=== PATIENT | female | born 1990 | race Caucasian/White ===

== ENCOUNTER → 2021-01-13 14:06 | Outpatient (CLI) | payer OTHER, MEDICAID, SELFPAY ==
[2021-01-13 14:39] LABS: COVID19 -Nasal RAPID Negative (Negative)
== END ==
PROVIDERS: Referring Provider Nurse Practitioner; Visit Provider Nurse Practitioner
DX: Z20.822 Contact with and (suspected) exposure to COVID-19 (principal)
CPT/HCPCS: 81002; 81025; 87635

== ENCOUNTER 2021-01-24 13:20 | Emergency (ER) | payer OTHER, MEDICAID, SELFPAY ==
[2021-01-24 14:02] VITALS: BP 158/73; PULSE 93; RESP 20; TEMP 37; O2SAT 98; BMI 39.1
--- NOTE | 2021-01-24 16:36 | ED_ITS ---
HPI - Female Genitourinary <Vick Delaney PA-C - Last Filed: 02/01/21 13:36> General Chief complaint: Vaginal Bleeding Stated complaint: Bleeding, Just Found Out Preg Time Seen by Provider: 01/24/21 14:45 Source: patient Mode of arrival: Ambulatory Related Data Home Medications Medication Instructions Recorded Confirmed Effexor 1 tab PO DAILY 01/24/21 02/04/21 buspirone 1 tab PO DAILY 01/24/21 02/04/21 oxycodone-acetaminophen 5 mg-325 0 tab PO Q4HP PRN 02/04/21 02/04/21 mg tablet (Percocet) Previous Rx's Medication Instructions Recorded ondansetron 4 mg disintegrating 4 mg PO Q8H PRN #10 tab 01/31/21 tablet Allergies Allergy/AdvReac Type Severity Reaction Status Date / Time methocarbamol [METHOCARBAMOL] Allergy Unknown SHARP Verified 02/03/21 16:23 DECREASE IN O2 SATS Penicillins Allergy Verified 02/03/21 16:23 Patient History <Vick Delaney PA-C - Last Filed: 02/01/21 13:36> Medical History Bartholin's gland abscess Methamphetamine abuse Miscarriage Opioid abuse Vaginal bleeding Surgical History History of lithotripsy Status post breast reduction alcohol intake frequency: 3 or more drinks per day Substance Use Type: marijuana, methamphetamine and other Exam <Vick Delaney PA-C - Last Filed: 02/01/21 13:36> Initial Vital Signs Initial Vital Signs: Vital Signs Temperature 98.6 F 01/24/21 14:02 Pulse Rate 93 H 01/24/21 14:02 Respiratory Rate 20 01/24/21 14:02 Blood Pressure 158/73 H 01/24/21 14:02 Pulse Oximetry 98 01/24/21 14:02 <Zach Rojo DO - Last Filed: 02/04/21 08:35> Initial Vital Signs Initial Vital Signs: Vital Signs Temperature 98.6 F 01/24/21 14:02 Pulse Rate 93 H 01/24/21 14:02 Respiratory Rate 20 01/24/21 14:02 Blood Pressure 158/73 H 01/24/21 14:02 Pulse Oximetry 98 01/24/21 14:02 Course <Vick Delaney PA-C - Last Filed: 02/01/21 13:36> Vital Signs Vital signs: Vital Signs - 8 hr 01/24/21 14:02 Temperature 98.6 F Pulse Rate 93 H Respiratory Rate 20 Blood Pressure 158/73 H Pulse Oximetry 98 <Zach Rojo DO - Last Filed: 02/04/21 08:35> Vital Signs Vital signs: Vital Signs - 8 hr 01/24/21 14:02 Temperature 98.6 F Pulse Rate 93 H Respiratory Rate 20 Blood Pressure 158/73 H Pulse Oximetry 98 MDM - Female Genitourinary <Vick Delaney PA-C - Last Filed: 02/01/21 13:36> Lab Data Labs: Urine Dip Bedside Urine Glucose Negative Bedside Urine Bilirubin + 1 Bedside Urine Ketone +/- 5 Urine Specific [place] 1.030 Bedside Urine Occult Blood +++ Bedside Urine pH 5.5 Bedside Urine Protein ++ 100 Bedside Urine Urobilinogen - Negative Bedside Urine Nitrite - Negative Bedside Urine Leukocytes + 70 Esterase <Zach Rojo DO - Last Filed: 02/04/21 08:35> Lab Data Labs: Urine Dip Bedside Urine Glucose Negative Bedside Urine Bilirubin + 1 Bedside Urine Ketone +/- 5 Urine Specific [place] 1.030 Bedside Urine Occult Blood +++ Bedside Urine pH 5.5 Bedside Urine Protein ++ 100 Bedside Urine Urobilinogen - Negative Bedside Urine Nitrite - Negative Bedside Urine Leukocytes + 70 Esterase Discharge Plan Departure Patient Disposition: Left Against Medical Advice Clinical Impression: Vaginal bleeding Activity Restrictions/Additional Instructions: You were seen in the ED today for vaginal bleeding. You declined the blood tests that are essential to your care. You are leaving against medical advice. Please return to the ED if you continue to have increased bleeding, you feel lightheaded, you faint, you have abdominal cramping, fever, chills. Prescriptions: No Action Effexor 75 mg tablet 1 tab PO DAILY RF: 0 buspirone 125 mg tablet 1 tab PO DAILY RF: 0 ondansetron 4 mg tablet,disintegrating 4 mg PO Q8H PRN (Reason: nausea and vomiting) Qty: 10 RF: 0 oxycodone-acetaminophen [Percocet] 5 MG/325 MG tablet 0 tab PO Q4HP PRN (Reason: Pain, Moderate) RF: 0 Referrals: Miscellaneous,Doctor, MD [Primary Care Provider] - Stand Alone Forms: Against Medical Advice
== END 2021-01-24 15:03 | disposition left against medical advice (07) ==
PROVIDERS: Emergency Provider Student in an Organized Health Care Education/Training Program
DX: O20.9 Hemorrhage in early pregnancy, unspecified (principal)
CPT/HCPCS: 81003; 99282

== ENCOUNTER 2021-01-30 21:49 | Emergency (ER) | payer OTHER, MEDICAID, SELFPAY ==
[2021-01-30 21:52] VITALS: BP 136/66; PULSE 92; RESP 18; TEMP 36.8; O2SAT 99
[2021-01-30 22:12] LABS: Add Manual Diff / Slide Review NO; Basophils Absolute Auto 0 /uL (0-100); Basophils Percent Auto 0.6 % (0-2); Eosinophils Absolute Auto 500 /uL (0-450); Eosinophils Percent Auto 5.6 % (2-4); Hematocrit 39.3 % (36-46); Hemoglobin 12.8 g/dL (12.0-16.0); Lymphocytes Absolute Auto 3300 /uL (1100-4500); Lymphocytes Percent Auto 38.3 % (25-40); Mean Corpuscular HGB Conc 32.7 % (30-36); Mean Corpuscular Hemoglobin 26.8 PG (26-34); Monocytes Absolute Auto 700 /uL (0-900); Monocytes Percent Auto 8.5 % (3-14); Neutrophils Absolute Auto 4000 /uL (1500-7000); Platelet Count 375 X10^3/uL (150-400); Red Blood Cell Count 4.79 X10^6/uL (4.0-5.2); Red Cell Distribution Width 14.5 % (11.6-14.8); White Blood Cell Count 8.5 X10^3/uL (4.5-11.0)
[2021-01-30 22:19] LABS: Alanine Aminotransferase 17 IU/L (<35); Albumin 4.2 g/dL (3.5-5.0); Albumin Globulin Ratio 1.3 (1.0-2.8); Alkaline Phosphatase 55 U/L (38-126); Aspartate Aminotransferase 19 IU/L (14-36); BUN Creatinine Ratio 18.5 (6-22); Bilirubin Total 0.5 mg/dL (0.2-1.3); Blood Urea Nitrogen 12 mg/dL (7-17); Calcium 9.9 mg/dL (8.4-10.2); Carbon Dioxide 36 mmol/L (22-32); Chloride 100 mmol/L (98-107); Estimated Glomerular Filt Rate > 60.0 mL/min (>60); Globulin 3.2 g/dL (1.7-4.1); Glucose 102 mg/dL (70-100); HEMOLYSIS < 15 (0-50); Lipase 27 U/L (23-300); Sodium 140 mmol/L (137-145); Total Protein 7.4 g/dL (6.3-8.2)
[2021-01-30] MEDS: ONDANSETRON 4 MG/2 ML INJ IV (22:50)
--- NOTE | 2021-01-31 00:35 | ED.GENADULT ---
HPI - General Adult General Chief complaint: Abdominal Pain Stated complaint: Vomiting,stomach ache, miscarrage? SOB Time Seen by Provider: 01/31/21 00:11 Source: patient Mode of arrival: Ambulatory History of Present Illness HPI narrative: Woman with a history of addiction disorder including alcohol, marijuana and methamphetamine presents with vaginal bleeding and vomiting. She was seen January 13 with concerns for STI testing and incidentally found to be . Was seen again on the with vaginal bleeding. States that she has continued to bleed and over the last 3 days started throwing up. She describes no pelvic pain or cramping but does complain of midepigastric pain particularly associated with vomiting. She describes no fevers, headaches, myalgias. She does describe some vaginal discharge with the spotting she has had over the last at least 2 weeks but does not describe any significant odor. Related Data Home Medications Medication Instructions Recorded Confirmed Effexor 01/24/21 buspirone 01/24/21 Previous Rx's Medication Instructions Recorded oxycodone-acetaminophen 5 mg-325 0 tab PO Q4HP PRN #30 tab 01/25/17 mg tablet (Percocet) Allergies Allergy/AdvReac Type Severity Reaction Status Date / Time methocarbamol [METHOCARBAMOL] Allergy Unknown SHARP Verified 01/24/21 14:04 DECREASE IN O2 SATS Penicillins Allergy Verified 01/30/21 21:55 Review of Systems Review of Systems Narrative: Remainder of complete review of systems is otherwise unremarkable except for that included in the HPI. Patient History Surgical History History of lithotripsy Status post breast reduction Social History Smoking Status: Current every day smoker Smoking Status: Current every day smoker alcohol intake frequency: 3 or more drinks per day Substance Use Type: marijuana, methamphetamine and other Exam Narrative Exam Narrative: General: disheveled, anxious, vomiting but in no acute distress Respiratory: Able to speak in full sentences, no obvious respiratory distress Skin: No obvious rashes, warm and dry Neurologic: Grossly intact no obvious asymmetries or abnormalities Psych: appropriate insight and affect, cooperative Bedside ultrasound: There appears to be debris in the uterus but no pole or heartbeat is appreciated. She describes no suprapubic or pelvic tenderness during exam. Initial Vital Signs Initial Vital Signs: Vital Signs Temperature 98.2 F 01/30/21 21:52 Pulse Rate 92 H 01/30/21 21:52 Respiratory Rate 18 01/30/21 21:52 Blood Pressure 136/66 01/30/21 21:52 Pulse Oximetry 99 01/30/21 21:52 Course Orders Ordered: ED Orders 01/30/21 22:04 Complete Blood Count AUTO DIFF Stat Comprehensive Metabolic Panel Stat Lipase Stat EKG-12 Lead Stat 01/31/21 00:44 HCG Quantitative /Beta subunit Stat 01/31/21 00:55 Urinalysis and Microscopic Stat Discontinued Medications Sodium Chloride (Normal Saline 0.9%) 1,000 mls @ 1,000 mls/hr IV BOLUS ONE Stop: 01/31/21 01:42 Last Admin: 01/31/21 00:57 Dose: 1,000 mls/hr Documented by: SAMINA Metoclopramide HCl (Metoclopramide 10 Mg/2 Ml Inj) 10 mg IV NOW ONE Stop: 01/31/21 00:44 Last Admin: 01/31/21 00:57 Dose: 10 mg Documented by: SAMINA Ondansetron HCl (Ondansetron 4 Mg/2 Ml Inj) 4 mg IV NOW ONE Stop: 01/30/21 22:27 Last Admin: 01/30/21 22:50 Dose: 4 mg Documented by: SAMINA Vital Signs Vital signs: Vital Signs - 8 hr 01/30/21 21:52 01/31/21 01:02 Temperature 98.2 F Pulse Rate 92 H 68 Respiratory Rate 18 Blood Pressure 136/66 121/70 Pulse Oximetry 99 98 Medical Decision Making Lab Data Result diagrams: 01/30/21 22:04 01/30/21 22:04 Labs: Lab Results 01/30/21 01/30/21 01/30/21 Range/Units 22:04 22:04 22:05 WBC 8.5 (4.5-11.0) X10^3/uL RBC 4.79 (4.0-5.2) X10^6/uL Hgb 12.8 (12.0-16.0) g/dL Hct 39.3 (36-46) % MCV 82.0 (80-100) fL MCH 26.8 (26-34) PG MCHC 32.7 (30-36) % RDW 14.5 (11.6-14.8) % Plt Count 375 (150-400) X10^3/uL Neut % (Auto) 47.0 L (50-75) % Lymph % (Auto) 38.3 (25-40) % [place] % (Auto) 8.5 (3-14) % Eos % (Auto) 5.6 H (2-4) % Baso % (Auto) 0.6 (0-2) % Neut # (Auto) 4000 (7021-7778) /uL Lymph # (Auto) 3300 (2334-5389) /uL [place] # (Auto) 700 (0-900) /uL Eos # (Auto) 500 H (0-450) /uL Baso # (Auto) 0 (0-100) /uL Sodium 140 (137-145) mmol/L Potassium 4.0 (3.4-5.1) mmol/L Chloride 100 (98-107) mmol/L Carbon Dioxide 36 H (22-32) mmol/L BUN 12 (7-17) mg/dL Creatinine 0.65 (0.52-1.04) mg/dL Estimated GFR > 60.0 (>60) mL/min BUN/Creatinine Ratio 18.5 (6-22) Glucose 102 H (70-100) mg/dL Calcium 9.9 (8.4-10.2) mg/dL Total Bilirubin 0.5 (0.2-1.3) mg/dL AST 19 (14-36) IU/L ALT 17 (<35) IU/L Alkaline Phosphatase 55 (38-126) U/L Total Protein 7.4 (6.3-8.2) g/dL Albumin 4.2 (3.5-5.0) g/dL Globulin 3.2 (1.7-4.1) g/dL Albumin/Globulin Ratio 1.3 (1.0-2.8) Lipase 27 (23-300) U/L HCG, Quant 80.1 mIU/mL Urine Color Urine Appearance Urine pH (4.5-8.0) Ur Specific [place] (1.000-1.035) Urine Protein (Negative) Urine Glucose (UA) (Negative) g/dL Urine Ketones (NEGATIVE) Urine Occult Blood (Negative) Urine Nitrate (Negative) Urine Bilirubin (NEGATIVE) Urine Urobilinogen (0.2) E.U./dL Ur Leukocyte Esterase (NEGATIVE) Urine RBC (0-5/HPF) Urine WBC (0-5/HPF) Ur Squamous Epith Cells (0-5/HPF) Amorphous Sediment Urine Bacteria (None) Urine Mucus (Negative) Ur Culture Indicated? 01/31/21 Range/Units 00:55 WBC (4.5-11.0) X10^3/uL RBC (4.0-5.2) X10^6/uL Hgb (12.0-16.0) g/dL Hct (36-46) % MCV (80-100) fL MCH (26-34) PG MCHC (30-36) % RDW (11.6-14.8) % Plt Count (150-400) X10^3/uL Neut % (Auto) (50-75) % Lymph % (Auto) (25-40) % [place] % (Auto) (3-14) % Eos % (Auto) (2-4) % Baso % (Auto) (0-2) % Neut # (Auto) (8885-3979) /uL Lymph # (Auto) (0960-9468) /uL [place] # (Auto) (0-900) /uL Eos # (Auto) (0-450) /uL Baso # (Auto) (0-100) /uL Sodium (137-145) mmol/L Potassium (3.4-5.1) mmol/L Chloride (98-107) mmol/L Carbon Dioxide (22-32) mmol/L BUN (7-17) mg/dL Creatinine (0.52-1.04) mg/dL Estimated GFR (>60) mL/min BUN/Creatinine Ratio (6-22) Glucose (70-100) mg/dL Calcium (8.4-10.2) mg/dL Total Bilirubin (0.2-1.3) mg/dL AST (14-36) IU/L ALT (<35) IU/L Alkaline Phosphatase (38-126) U/L Total Protein (6.3-8.2) g/dL Albumin (3.5-5.0) g/dL Globulin (1.7-4.1) g/dL Albumin/Globulin Ratio (1.0-2.8) Lipase (23-300) U/L HCG, Quant mIU/mL Urine Color Dark yellow Urine Appearance Slightly cloudy Urine pH 8.5 H (4.5-8.0) Ur Specific [place] 1.010 (1.000-1.035) Urine Protein 2+ H (Negative) Urine Glucose (UA) Trace H (Negative) g/dL Urine Ketones Negative (NEGATIVE) Urine Occult Blood 3+ H (Negative) Urine Nitrate Negative (Negative) Urine Bilirubin Negative (NEGATIVE) Urine Urobilinogen 0.2 (0.2) E.U./dL Ur Leukocyte Esterase Negative (NEGATIVE) Urine RBC 0-1/hpf (0-5/HPF) Urine WBC 0-1/hpf (0-5/HPF) Ur Squamous Epith Cells 5-10 /hpf H (0-5/HPF) Amorphous Sediment 2+ Urine Bacteria Moderate (10-30) H (None) Urine Mucus 2+ H (Negative) Ur Culture Indicated? Cult not indicated MDM Narrative Medical decision making narrative: 30-year-old woman with recently diagnosed bleeding for the last 2 weeks. Bedside ultrasound does not show of viable intrauterine fetus and beta hCG is down to 80. No signs of overall infection and no good explanation for the vomiting she has been having for the last couple of days. No evidence of acute renal failure or electrolyte abnormalities. She has responded nicely to fluids and Zofran. Will discharge her home with a prescription for Zofran. We also discussed the need for control to avoid another unwanted . At this time, with absence of pelvic pain I do not suspect ectopic , pelvic inflammatory disease. Her urine looks contaminated and without symptoms of a UTI will wait for culture to return prior to any treatment. She is safe for home discharge Discharge Plan Departure Patient Disposition: Home Clinical Impression: Miscarriage, Dehydration Nausea & vomiting Qualifiers: Vomiting type: unspecified Vomiting Intractability: non-intractable Qualified Code(s): R11.2 - Nausea with vomiting, unspecified Instructions: DI for Miscarriage, DI for Vomiting -- Adult Activity Restrictions/Additional Instructions: Thank you for coming in today You are having a miscarriage. Please do expect continue bleeding for the next couple of days. I would recommend following up with your primary care provider or [facility] to discuss [facility] options so that you do not have to worry about another unplanned . I have given you a prescription for Zofran to help with the nausea if it continues. If you do continue to have cramps related to your miscarriage, using 400 mg of ibuprofen (2 [id number] pills) and 1 Tylenol every 6 hours can be very helpful in controlling pain. I wish you the best Prescriptions: No Action oxycodone-acetaminophen [Percocet] 5 MG/325 MG tablet 0 tab PO Q4HP PRNQty: 30 RF: 0 Effexor RF: 0 buspirone RF: 0 Referrals: Miscellaneous,Doctor, MD [Primary Care Provider] -
[2021-01-31] MEDS: METOCLOPRAMIDE 10 MG/2 ML INJ IV (00:57)
[2021-01-31] MEDS: SODIUM CHLORIDE 0.9% 1,000 ML 1000 ML IV (00:57)
[2021-01-31 01:02] VITALS: BP 121/70; PULSE 68; O2SAT 98
[2021-01-31 01:11] LABS: Bilirubin Urine UA NEGATIVE (NEGATIVE); Glucose Urine UA TRACE g/dL (Negative); Ketones Urine UA NEGATIVE (NEGATIVE); Leukocyte Esterase Urine UA NEGATIVE (NEGATIVE); Nitrite Urine UA NEGATIVE (Negative); Occult Blood Urine UA 3+ (Negative); Protein Urine UA 2+ (Negative); Urobilinogen Urine UA 0.2 E.U./dL (0.2)
[2021-01-31 01:12] LABS: Appearance Urine UA Slightly Cloudy; Color Urine UA Dark Yellow; RBC Urine 0-1/HPF (0-5/HPF); Squamous Epithelial Cell Urine 5-10 /HPF (0-5/HPF); WBC Urine 0-1/HPF (0-5/HPF); pH Urine UA 8.5 (4.5-8.0)
[2021-01-31 01:13] LABS: Amorphous Sediment Urine 2+; Bacteria Urine Moderate (10-30); Culture Indicated Urine Cult Not Indicated; Mucus Urine 2+ (Negative)
[2021-01-31 01:17] LABS: HCG Quantitative /Beta subunit 80.1 mIU/mL
[2021-01-31] MEDS: KETOROLAC 30 MG/ML VIAL 15 MG IV (02:08)
== END 2021-01-31 02:22 | disposition home or self-care (01) ==
PROVIDERS: Emergency Provider Emergency Medicine
DX: O03.9 Complete or unspecified spontaneous abortion without complication (principal); E86.0 Dehydration; R11.2 Nausea with vomiting, unspecified
CPT/HCPCS: 36415; 80053; 81001; 83690; 84702; 85025; 96361; 96374; 96375; 99284; J1885; J2405; J2765

== ENCOUNTER 2021-02-03 15:35 | Observation (INO) | payer OTHER, MEDICAID, SELFPAY ==
[2021-02-03] VITALS (12 sets, daily range): BP systolic 106–133; BP diastolic 60–82; PULSE 72–99; RESP 11–22; TEMP 36.6–37.1; O2SAT 87–100; BMI 37.5
--- NOTE | 2021-02-03 15:36 | DI.CT.S_ITS ---
PROCEDURE: CT STROKE INDICATIONS: code stroke TECHNIQUE: Noncontrast 4.5 mm thick angled axial sections acquired from the foramen magnum to the vertex, with coronal reformats. For radiation dose reduction, the following was used: automated exposure control, adjustment of mA and/or kV according to patient size. COMPARISON: None. FINDINGS: Image quality: Excellent. CSF spaces: Basal cisterns are patent. No extra-axial fluid collections. The ventricles are symmetric in size and shape. Brain: No intracranial bleeds or masses. There is cerebral volume loss for age, with resultant ventricular and sulcal prominence. There are periventricular and deep white matter chronic small vessel ischemic changes. There is intracranial internal carotid artery atherosclerosis. Skull and face: Calvarium and visualized facial bones appear intact, without suspicious lesions. Sinuses: Visualized sinuses and mastoids are clear. IMPRESSION: No acute intracranial disease process. Findings telephoned to Dr. Montanez on February 03, 2021 at 4:03 p.m PDST. This study fulfills neurological imaging criteria for inclusion or exclusion of acute stroke therapies based on available published neurological guidelines. Dictated by: Marsha Alcazar MD, PhD on 02/03/2021 at 15:01 Approved by: Marsha Alcazar MD, PhD on 02/03/2021 at 15:05
--- NOTE | 2021-02-03 15:38 | DI.CT.S_ITS ---
PROCEDURE: CT ANGIO HEAD AND NECK INDICATIONS: code stroke TECHNIQUE: After the administration of intravenous contrast, 1 mm thick sections acquired from the aortic arch through the [place] of [place]. Post-contrast 4.5 mm thick sections then re-acquired from the foramen magnum to the vertex. 3-dimensional [id number] (MIP) and/or volume rendering reformats were acquired of the central intracranial vasculature and neck separately. COMPARISON: [facility], CT, CT STROKE, 02/03/2021, 15:50. FINDINGS: Image quality: Degraded by venous contrast opacification related to prior intravenous contrast ejection with early vein failure with injection site. Contrast injection was repeated with different intravenous injection site. BRAIN: CSF spaces: Ventricles are normal in size and shape. Basal cisterns are patent. No extra-axial fluid collections. Brain: No midline shift. No intracranial bleeds or masses. Siegel-white matter interface appears intact. Skull and face: Calvarium and facial bones appear intact, without suspicious lesions. Orbits appear normal. Sinuses: Sinuses and mastoids are clear. HEAD CT ANGIOGRAPHY: Anterior circulation: Intracranial internal carotid arteries are normal in size and flow. The flow within the paired anterior cerebral arteries is normal and symmetric. The flow within the middle cerebral arteries is normal and symmetric. The anterior communicating artery is seen. No aneurysms are seen. Posterior circulation: Visualized portions of the vertebral arteries demonstrate normal caliber, and join to form a normal appearing basilar artery. Flow within the posterior cerebral arteries is normal and symmetric. No aneurysms are seen. Dural sinuses demonstrate normal postcontrast enhancement. NECK CT ANGIOGRAPHY: Carotid system: The great vessels demonstrate a conventional anatomy as they arise from the aortic arch. The origins of the common carotid arteries appear patent. The common carotid arteries demonstrate normal caliber and courses. The bifurcation regions are both widely patent. The internal carotid arteries demonstrate normal calibers and courses. Posterior circulation: The origins of the vertebral arteries both appear widely patent. The more superior extracranial portions of both vertebral arteries also demonstrate normal courses and calibers. They join to form a normal appearing basilar artery. Soft tissues: Visualized neck soft tissues demonstrate no suspicious abnormalities. Bones: No suspicious bony lesions. Visualized cervical spine appears normally aligned. IMPRESSION: 1. No acute intracranial disease process. 2. No large vessel occlusion, hemodynamically significant vascular stenosis, vascular dissection or aneurysm within limitations of the study. Any quantitative measurements of stenosis were performed using NASCET criteria. Dictated by: Marsha Alcazar MD, PhD on 02/03/2021 at 15:20 Approved by: Marsha Alcazar MD, PhD on 02/03/2021 at 15:34
[2021-02-03 16:16] LABS: Add Manual Diff / Slide Review NO; Basophils Absolute Auto 0 /uL (0-100); Basophils Percent Auto 0.6 % (0-2); Eosinophils Absolute Auto 300 /uL (0-450); Eosinophils Percent Auto 3.2 % (2-4); Hematocrit 42.8 % (36-46); Hemoglobin 13.9 g/dL (12.0-16.0); Lymphocytes Absolute Auto 2600 /uL (1100-4500); Lymphocytes Percent Auto 33.4 % (25-40); Mean Corpuscular HGB Conc 32.5 % (30-36); Mean Corpuscular Hemoglobin 27.3 PG (26-34); Mean Corpuscular Volume 84.1 fL (80-100); Monocytes Absolute Auto 600 /uL (0-900); Monocytes Percent Auto 7.4 % (3-14); Neutrophils Absolute Auto 4300 /uL (1500-7000); Neutrophils Percent Auto 55.4 % (50-75); Platelet Count 302 X10^3/uL (150-400); Red Blood Cell Count 5.09 X10^6/uL (4.0-5.2); Red Cell Distribution Width 14.9 % (11.6-14.8); White Blood Cell Count 7.8 X10^3/uL (4.5-11.0)
[2021-02-03 16:18] LABS: Creatine Kinase 50 U/L (30-135); Ethanol (ETOH) < 10 mg/dL; Lipase 28 U/L (23-300); Salicylate < 1.0 mg/dL (<20)
[2021-02-03 16:19] LABS: Acetaminophen < 10 ug/mL (10-30); Alanine Aminotransferase 16 IU/L (<35); Albumin 4.3 g/dL (3.5-5.0); Albumin Globulin Ratio 1.5 (1.0-2.8); Alkaline Phosphatase 60 U/L (38-126); Aspartate Aminotransferase 22 IU/L (14-36); BUN Creatinine Ratio 20.3 (6-22); Bilirubin Total 0.4 mg/dL (0.2-1.3); Blood Urea Nitrogen 16 mg/dL (7-17); Calcium 9.7 mg/dL (8.4-10.2); Carbon Dioxide 25 mmol/L (22-32); Chloride 103 mmol/L (98-107); Estimated Glomerular Filt Rate > 60.0 mL/min (>60); Globulin 2.9 g/dL (1.7-4.1); Glucose 107 mg/dL (70-100); HEMOLYSIS < 15 (0-50); Potassium 3.9 mmol/L (3.4-5.1); Sodium 138 mmol/L (137-145); Total Protein 7.2 g/dL (6.3-8.2)
[2021-02-03 16:29] LABS: INR 1.1 (0.9-1.3); Prothrombin Time 12.4 SECONDS (10.1-12.7)
[2021-02-03 16:29] LABS: Troponin I < 0.012 ng/mL (0.01-0.034)
[2021-02-03] MEDS: SODIUM CHLORIDE 0.9% 1,000 ML 125 ML IV (16:30)
[2021-02-03 16:31] LABS: PTT Partial Thromboplastin Tim 35 SECONDS (26.4-36.2)
[2021-02-03 16:34] LABS: Lactate (Lactic Acid) 1.4 mmol/L (0.7-2.1)
--- NOTE | 2021-02-03 16:34 | ED_ITS ---
HPI - General Adult <Francisco J Montanez, DO - Last Filed: 02/04/21 07:20> General Chief complaint: Neuro Symptoms/Deficit Stated complaint: stroke Time Seen by Provider: 02/03/21 15:36 Source: patient and EMS Mode of arrival: EMS Limitations: no limitations History of Present Illness HPI narrative: Patient is a 30-year-old female who arrives by EMS as a code stroke for evaluation of left-sided weakness. Is reported that the symptom onset was at 14 30 this afternoon. She arrived approximately 1 hour afterwards. Is reported that she did use methamphetamine just prior to the onset of the s ymptoms. This was per EMS who got this information from the individual's that she was with at the time. Reports of left leg weakness and left-sided facial droop. Upon arrival patient was initially seen by nursing staff. Nursing staff stated that she did have facial droop and problems speaking and also left arm and left leg weakness. She went to the CT scanner soon after arrival. Upon returning to the room I performed my evaluation. Patient states she does have a headache. She cannot describe it much more than that she has pain all over her head. States she has had the headache all day today. She has had headaches in the past but nothing that has been this bad. She denies having left-sided weakness. She also states that she fell earlier today. She reports no injuries from the fall. She denies alcohol. She denies neck pain. No problems swallowing. No chest pain. No shortness of breath. No nausea vomiting. No urinary symptoms. She denies any musculoskeletal complaints. Related Data Home Medications Medication Instructions Recorded Confirmed Effexor 1 tab PO DAILY 01/24/21 02/04/21 buspirone 1 tab PO DAILY 01/24/21 02/04/21 oxycodone-acetaminophen 5 mg-325 0 tab PO Q4HP PRN 02/04/21 02/04/21 mg tablet (Percocet) Previous Rx's Medication Instructions Recorded ondansetron 4 mg disintegrating 4 mg PO Q8H PRN #10 tab 01/31/21 tablet Allergies Allergy/AdvReac Type Severity Reaction Status Date / Time methocarbamol [METHOCARBAMOL] Allergy Unknown SHARP Verified 02/03/21 16:23 DECREASE IN O2 SATS Penicillins Allergy Verified 02/03/21 16:23 <Belle Tesfaye, - Last Filed: 02/04/21 03:21> History of Present Illness HPI narrative: Patient is a 30-year-old female who arrives by EMS as a code stroke for evaluation of left-sided weakness. Is reported that the symptom onset was at 14:30 this afternoon. She arrived approximately 1 hour afterwards. Is reported that she did use methamphetamine just prior to the onset of the symptoms. This was per EMS who got this information from the individual's that she was with at the time. Reports of left leg weakness and left-sided facial droop. Upon arrival patient was initially seen by nursing staff. Nursing staff stated that she did have facial droop and problems speaking and also left arm and left leg weakness. She went to the CT scanner soon after arrival. Upon returning to the room I performed my evaluation. Patient states she does have a headache. She cannot describe it much more than that she has pain all over her head. States she has had the headache all day today. She has had headaches in the past but nothing that has been this bad. She denies having left-sided weakness. She also states that she fell earlier today. She reports no injuries from the fall. She denies alcohol. She denies neck pain. No problems swallowing. No chest pain. No shortness of breath. No nausea vomiting. No urinary symptoms. She denies any musculoskeletal complaints. Review of Systems <DO Katia Grimm Last Filed: 02/04/21 07:20> Constitutional Constitutional: Denies fever(s) and Reports headache(s) Eyes Eyes: Denies change in vision ENT Ears, Nose, Mouth, and Throat: Reports headache(s) and Denies sore throat Cardiovascular Cardiovascular: Denies chest pain and Denies dyspnea Respiratory Respiratory: Denies dyspnea Gastrointestinal Gastrointestinal: Denies abdominal pain Musculoskeletal Musculoskeletal: Reports system reviewed and no additional complaints, except as documented and Reports as per HPI Integumentary/Breasts Skin/Breast: Reports system reviewed and no additional complaints, except as documented Neurologic Neurologic: Reports headache(s) Psychiatric Psychiatric: Reports as per HPI Hematologic/Lymphatic On Anticoagulants: No Allergic/Immunologic Allergic/Immunologic: Reports system reviewed and no additional complaints, except as documented Patient History <DO Katia Grimm Last Filed: 02/04/21 07:20> Medical History Bartholin's gland abscess Methamphetamine abuse Miscarriage Opioid abuse Vaginal bleeding Surgical History History of lithotripsy Status post breast reduction Social History household members: friend(s) Smoking Status: Current every day smoker Smoking Status: Current every day smoker alcohol intake frequency: 3 or more drinks per day Substance Use Type: marijuana, methamphetamine and other Exam <Francisco J Montanez DO - Last Filed: 02/04/21 07:20> Initial Vital Signs Initial Vital Signs: Vital Signs Temperature 98.8 F 02/03/21 15:31 Pulse Rate 93 H 02/03/21 15:31 Respiratory Rate 16 02/03/21 15:31 Blood Pressure 133/82 02/03/21 15:31 Pulse Oximetry 100 02/03/21 15:31 Const General: comfortable, well groomed, No ill appearing and No intoxicated appearing HENMT Head: normal to inspection and normocephalic Nose: external nose normal Face and sinus: normal facial exam Mouth: oral mucosae normal and moist mucous membranes Throat: posterior oropharynx normal Eyes Pupils: PERRL EOM: EOM intact bilaterally Chest Chest: normal inspection of the chest Resp Effort & Inspection: normal respiratory effort Auscultation: clear to auscultation bilaterally Cardio Rate: regular rate Rhythm: regular rhythm GI Inspection: normal to inspection and non-distended Skin General: no rashes or lesions noted Neuro Other: See NIH scale. Patient denies that she is having any neurologic symptoms. She does have a headache. Her cranial nerves are unremarkable. She has no facial droop. Her right upper extremity and right lower extremity are unremarkable. There is 5/5 strength. Patient has very minimal activity against gravity to her left arm and left leg. Extrem General: normal to inspection, capillary refill normal and no pedal edema Psych Appearance: grossly normal <Belle Tesfaye DO - Last Filed: 02/04/21 03:21> Initial Vital Signs Initial Vital Signs: Vital Signs Temperature 98.8 F 02/03/21 15:31 Pulse Rate 93 H 02/03/21 15:31 Respiratory Rate 16 02/03/21 15:31 Blood Pressure 133/82 02/03/21 15:31 Pulse Oximetry 100 02/03/21 15:31 Scores <Francisco J Montanez DO - Last Filed: 02/04/21 07:20> GCS Karen coma scale eye opening: Spontaneous Thebes coma scale verbal response: Orientated Karen coma scale motor response: Obey commands Karen coma scale total score: 15 NIH Stroke Scale Level of Conciousness: Alert, keenly responsive Ask month/age: Answers both questions correctly. Open/close eyes, close hand: Performs both tasks correctly Best gaze horizontal: Normal Visual everett: No visual loss Facial palsy: Normal symetrical movement Left arm drift: No effort against gravity Right arm drift: No drift for full 10 sec Left leg drift: No effort against gravity Right leg drift: No drift for full 5 sec Limb ataxia: Present in two limbs Sensory on face/arms/legs: Mild to moderate sensory loss, can tell touch (Decreased sensation to left side of face) Best language: No aphasia, normal Dysarthria: Normal Extinction or inattention: No abnormality Total NIH Stroke scale score: 9 <Belle Tesfaye DO - Last Filed: 02/04/21 03:21> GCS Thebes coma scale total score: 15 NIH Stroke Scale Total NIH Stroke scale score: 9 Course <Francisco J Montanez DO - Last Filed: 02/04/21 07:20> Orders Ordered: Acetaminophen (Acetaminophen 325 Mg Tablet) 650 mg PO Q6HR PRN PRN Reason: Fever/Mild Pain (1-3) Last Admin: 02/04/21 06:20 Dose: 650 mg Documented by: Admin: 02/03/21 23:35 Dose: 650 mg Documented by: ABBY Enoxaparin Sodium (Enoxaparin 40 Mg/0.4 Ml Syringe) 40 mg SUBCUT DAILY [facility] Sodium Chloride (Normal Saline 0.9%) 1,000 mls @ 100 mls/hr IV CONT SERENITY Last Admin: 02/04/21 06:58 Dose: 100 mls/hr Documented by: Infusion: 02/04/21 06:58 Dose: 100 mls/hr Documented by: Admin: 02/03/21 23:37 Dose: 100 mls/hr Documented by: ABBY Ibuprofen (Ibuprofen 600 Mg Tablet) 600 mg PO Q6HR PRN PRN Reason: Fever/Mild Pain (1-3) Last Admin: 02/04/21 06:19 Dose: 600 mg Documented by: Admin: 02/03/21 23:35 Dose: 600 mg Documented by: ABBY Naloxone HCl (Naloxone 0.4 Mg/Ml Vial) 0.2 mg IV Q2MIN PRN PRN Reason: Opiate Reversal Ondansetron HCl (Ondansetron 4 Mg/2 Ml Inj) 4 mg IV Q6HR PRN PRN Reason: Nausea And Vomiting Verapamil HCl (Verapamil Sr 120 Mg Tablet) 120 mg PO DAILY [facility] Last Admin: 02/04/21 02:22 Dose: Not Given Documented by: ABBY Discontinued Medications Diphenhydramine HCl (Diphenhydramine 50 Mg/Ml Vial) 25 mg IV NOW ONE Stop: 02/03/21 17:15 Last Admin: 02/03/21 17:28 Dose: 25 mg Documented by: ROSE Enoxaparin Sodium (Enoxaparin 40 Mg/0.4 Ml Syringe) 40 mg SUBCUT DAILY [facility] Hydromorphone HCl (Hydromorphone 1 Mg Inj) 1 mg IV NOW ONE Stop: 02/03/21 18:46 Last Admin: 02/03/21 18:54 Dose: 1 mg Documented by: ROSE Hydromorphone HCl (Hydromorphone 1 Mg Inj) 1 mg IV NOW ONE Stop: 02/03/21 21:48 Last Admin: 02/03/21 22:06 Dose: 1 mg Documented by: WINSOMEYLDIALLO Sodium Chloride (Normal Saline 0.9%) 1,000 mls @ 125 mls/hr IV CONT [facility] Last Infusion: 02/04/21 01:59 Dose: 0 mls/hr Documented by: Infusion: 02/03/21 22:36 Dose: 125 mls/hr Documented by: Infusion: 02/03/21 19:49 Dose: 125 mls/hr Documented by: Infusion: 02/03/21 17:36 Dose: 0 mls/hr Documented by: Admin: 02/03/21 16:30 Dose: 125 mls/hr Documented by: ROSE Sodium Chloride (Normal Saline 0.9%) 1,000 mls @ 1,000 mls/hr IV BOLUS ONE Stop: 02/03/21 18:14 Last Infusion: 02/03/21 19:23 Dose: 0 mls/hr Documented by: Admin: 02/03/21 17:33 Dose: 1,000 mls/hr Documented by: ROSE Ketorolac Tromethamine (Ketorolac 30 Mg/Ml Vial) 30 mg IV NOW ONE Stop: 02/03/21 17:15 Last Admin: 02/03/21 17:29 Dose: 30 mg Documented by: ROSE Metoclopramide HCl (Metoclopramide 10 Mg/2 Ml Inj) 10 mg IV NOW ONE Stop: 02/03/21 17:15 Last Admin: 02/03/21 17:28 Dose: 10 mg Documented by: ROSE Verapamil HCl (Verapamil Sr 120 Mg Tablet) 120 mg PO DAILY [facility] Verapamil HCl (Verapamil Sr 120 Mg Tablet) 120 mg PO DAILY [facility] Last Admin: 02/04/21 02:01 Dose: Not Given Documented by: CLAUDIA Verapamil HCl (Verapamil Sr 120 Mg Tablet) 120 mg PO DAILY [facility] Vital Signs Vital signs: Vital Signs - 8 hr 02/03/21 22:06 Pulse Rate 86 Respiratory Rate 18 Blood Pressure 117/60 Pulse Oximetry 97 <Belle Tesfaye DO - Last Filed: 02/04/21 03:21> Orders Ordered: Acetaminophen (Acetaminophen 325 Mg Tablet) 650 mg PO Q6HR PRN PRN Reason: Fever/Mild Pain (1-3) Last Admin: 02/04/21 06:20 Dose: 650 mg Documented by: Admin: 02/03/21 23:35 Dose: 650 mg Documented by: ABBY Enoxaparin Sodium (Enoxaparin 40 Mg/0.4 Ml Syringe) 40 mg SUBCUT DAILY [facility] Sodium Chloride (Normal Saline 0.9%) 1,000 mls @ 100 mls/hr IV CONT SERENITY Last Admin: 02/04/21 06:58 Dose: 100 mls/hr Documented by: Infusion: 02/04/21 06:58 Dose: 100 mls/hr Documented by: Admin: 02/03/21 23:37 Dose: 100 mls/hr Documented by: ABBY Ibuprofen (Ibuprofen 600 Mg Tablet) 600 mg PO Q6HR PRN PRN Reason: Fever/Mild Pain (1-3) Last Admin: 02/04/21 06:19 Dose: 600 mg Documented by: Admin: 02/03/21 23:35 Dose: 600 mg Documented by: ABBY Naloxone HCl (Naloxone 0.4 Mg/Ml Vial) 0.2 mg IV Q2MIN PRN PRN Reason: Opiate Reversal Ondansetron HCl (Ondansetron 4 Mg/2 Ml Inj) 4 mg IV Q6HR PRN PRN Reason: Nausea And Vomiting Verapamil HCl (Verapamil Sr 120 Mg Tablet) 120 mg PO DAILY [facility] Last Admin: 02/04/21 02:22 Dose: Not Given Documented by: ABBY Discontinued Medications Diphenhydramine HCl (Diphenhydramine 50 Mg/Ml Vial) 25 mg IV NOW ONE Stop: 02/03/21 17:15 Last Admin: 02/03/21 17:28 Dose: 25 mg Documented by: ROSE Enoxaparin Sodium (Enoxaparin 40 Mg/0.4 Ml Syringe) 40 mg SUBCUT DAILY [facility] Hydromorphone HCl (Hydromorphone 1 Mg Inj) 1 mg IV NOW ONE Stop: 02/03/21 18:46 Last Admin: 02/03/21 18:54 Dose: 1 mg Documented by: ROSE Hydromorphone HCl (Hydromorphone 1 Mg Inj) 1 mg IV NOW ONE Stop: 02/03/21 21:48 Last Admin: 02/03/21 22:06 Dose: 1 mg Documented by: WINSOMEYLDIALLO Sodium Chloride (Normal Saline 0.9%) 1,000 mls @ 125 mls/hr IV CONT [facility] Last Infusion: 02/04/21 01:59 Dose: 0 mls/hr Documented by: Infusion: 02/03/21 22:36 Dose: 125 mls/hr Documented by: Infusion: 02/03/21 19:49 Dose: 125 mls/hr Documented by: Infusion: 02/03/21 17:36 Dose: 0 mls/hr Documented by: Admin: 02/03/21 16:30 Dose: 125 mls/hr Documented by: ROSE Sodium Chloride (Normal Saline 0.9%) 1,000 mls @ 1,000 mls/hr IV BOLUS ONE Stop: 02/03/21 18:14 Last Infusion: 02/03/21 19:23 Dose: 0 mls/hr Documented by: Admin: 02/03/21 17:33 Dose: 1,000 mls/hr Documented by: ROSE Ketorolac Tromethamine (Ketorolac 30 Mg/Ml Vial) 30 mg IV NOW ONE Stop: 02/03/21 17:15 Last Admin: 02/03/21 17:29 Dose: 30 mg Documented by: ROSE Metoclopramide HCl (Metoclopramide 10 Mg/2 Ml Inj) 10 mg IV NOW ONE Stop: 02/03/21 17:15 Last Admin: 02/03/21 17:28 Dose: 10 mg Documented by: ROSE Verapamil HCl (Verapamil Sr 120 Mg Tablet) 120 mg PO DAILY [facility] Verapamil HCl (Verapamil Sr 120 Mg Tablet) 120 mg PO DAILY [facility] Last Admin: 02/04/21 02:01 Dose: Not Given Documented by: CLAUDIA Verapamil HCl (Verapamil Sr 120 Mg Tablet) 120 mg PO DAILY [facility] Consultations Consultation #1: Spoke with [facility] neurology. Discussed patient's head CT, CT angio and MRI without contrast. States at this point rule out stroke. He would suspect complex migraine, postictal was on the differential but seems unlikely as there was no postictal state and patient was with friends who apparently witnessed this and did not appreciate any seizure activity. At this time she has had some improvement in her NIH with treatment for headache and he suspects this is a likely cause. He does recommend continuing to treat headache and continuing to monitor patient's neurologic changes. If her symptoms persist beyond 24 hours then he would recommend MRI with contrast unless there is other contraindications. Time: 21:55 Consultation #2: DATA MANAGEMENT MANAGER Dorene Reaves, patient still has NIH of 3. MRI is negative for stroke. I had contacted [facility] neurology discussed the recommendations that treating her like a hemiplegic migraine at this time. They feel at this time stroke has been ruled out. They do recommend repeat MRI with contrast unless contraindicated if patient's symptoms have not resolved 24 hours. All questions answered. Vital Signs Vital signs: Vital Signs - 8 hr 02/03/21 22:06 Pulse Rate 86 Respiratory Rate 18 Blood Pressure 117/60 Pulse Oximetry 97 Medical Decision Making <Francisco J Montanez DO - Last Filed: 02/04/21 07:20> Medical Records Medical records reviewed: Yes I reviewed the patient's medical records. Lab Data Lab results reviewed: Yes I reviewed the patient's lab results. Result diagrams: 02/03/21 14:59 02/03/21 14:59 Labs: Lab Results 02/03/21 02/03/21 02/03/21 Range/Units 14:59 14:59 14:59 WBC 7.8 (4.5-11.0) X10^3/uL RBC 5.09 (4.0-5.2) X10^6/uL Hgb 13.9 (12.0-16.0) g/dL Hct 42.8 (36-46) % MCV 84.1 (80-100) fL MCH 27.3 (26-34) PG MCHC 32.5 (30-36) % RDW 14.9 H (11.6-14.8) % Plt Count 302 (150-400) X10^3/uL Neut % (Auto) 55.4 (50-75) % Lymph % (Auto) 33.4 (25-40) % Callaway % (Auto) 7.4 (3-14) % Eos % (Auto) 3.2 (2-4) % Baso % (Auto) 0.6 (0-2) % Neut # (Auto) 4300 (5367-6501) /uL Lymph # (Auto) 2600 (0595-6524) /uL Callaway # (Auto) 600 (0-900) /uL Eos # (Auto) 300 (0-450) /uL Baso # (Auto) 0 (0-100) /uL PT (10.1-12.7) SECONDS INR (0.9-1.3) APTT (26.4-36.2) SECONDS Sodium 138 (137-145) mmol/L Potassium 3.9 (3.4-5.1) mmol/L Chloride 103 (98-107) mmol/L Carbon Dioxide 25 (22-32) mmol/L BUN 16 (7-17) mg/dL Creatinine 0.79 (0.52-1.04) mg/dL Estimated GFR > 60.0 (>60) mL/min BUN/Creatinine Ratio 20.3 (6-22) Glucose 107 H (70-100) mg/dL Lactate (0.7-2.1) mmol/L Calcium 9.7 (8.4-10.2) mg/dL Magnesium 2.0 (1.6-2.3) mg/dL Total Bilirubin 0.4 (0.2-1.3) mg/dL AST 22 (14-36) IU/L ALT 16 (<35) IU/L Alkaline Phosphatase 60 (38-126) U/L Total Creatine Kinase 50 (30-135) U/L CK-MB (CK-2) TNP CK-MB (CK-2) Rel Index TNP Troponin I < 0.012 (0.01-0.034) ng/mL Total Protein 7.2 (6.3-8.2) g/dL Albumin 4.3 (3.5-5.0) g/dL Globulin 2.9 (1.7-4.1) g/dL Albumin/Globulin Ratio 1.5 (1.0-2.8) Lipase 28 (23-300) U/L TSH (0.47-4.68) uIU/mL HCG, Quant mIU/mL Serum , Qual (Negative) Salicylates < 1.0 (<20) mg/dL Acetaminophen < 10 L (10-30) ug/mL Ethyl Alcohol < 10 ( - 10) mg/dL SARS-CoV-2 (PCR) (Negative) 02/03/21 02/03/21 02/03/21 Range/Units 14:59 16:05 16:05 WBC (4.5-11.0) X10^3/uL RBC (4.0-5.2) X10^6/uL Hgb (12.0-16.0) g/dL Hct (36-46) % MCV (80-100) fL MCH (26-34) PG MCHC (30-36) % RDW (11.6-14.8) % Plt Count (150-400) X10^3/uL Neut % (Auto) (50-75) % Lymph % (Auto) (25-40) % Callaway % (Auto) (3-14) % Eos % (Auto) (2-4) % Baso % (Auto) (0-2) % Neut # (Auto) (1708-7965) /uL Lymph # (Auto) (8287-4940) /uL Callaway # (Auto) (0-900) /uL Eos # (Auto) (0-450) /uL Baso # (Auto) (0-100) /uL PT 12.4 (10.1-12.7) SECONDS INR 1.1 (0.9-1.3) APTT 35 (26.4-36.2) SECONDS Sodium (137-145) mmol/L Potassium (3.4-5.1) mmol/L Chloride (98-107) mmol/L Carbon Dioxide (22-32) mmol/L BUN (7-17) mg/dL Creatinine (0.52-1.04) mg/dL Estimated GFR (>60) mL/min BUN/Creatinine Ratio (6-22) Glucose (70-100) mg/dL Lactate 1.4 (0.7-2.1) mmol/L Calcium (8.4-10.2) mg/dL Magnesium (1.6-2.3) mg/dL Total Bilirubin (0.2-1.3) mg/dL AST (14-36) IU/L ALT (<35) IU/L Alkaline Phosphatase (38-126) U/L Total Creatine Kinase (30-135) U/L CK-MB (CK-2) CK-MB (CK-2) Rel Index Troponin I (0.01-0.034) ng/mL Total Protein (6.3-8.2) g/dL Albumin (3.5-5.0) g/dL Globulin (1.7-4.1) g/dL Albumin/Globulin Ratio (1.0-2.8) Lipase (23-300) U/L TSH (0.47-4.68) uIU/mL HCG, Quant mIU/mL Serum , Qual Positive H (Negative) Salicylates (<20) mg/dL Acetaminophen (10-30) ug/mL Ethyl Alcohol ( - 10) mg/dL SARS-CoV-2 (PCR) (Negative) 02/03/21 02/03/21 02/03/21 Range/Units 16:05 16:05 16:08 WBC (4.5-11.0) X10^3/uL RBC (4.0-5.2) X10^6/uL Hgb (12.0-16.0) g/dL Hct (36-46) % MCV (80-100) fL MCH (26-34) PG MCHC (30-36) % RDW (11.6-14.8) % Plt Count (150-400) X10^3/uL Neut % (Auto) (50-75) % Lymph % (Auto) (25-40) % Callaway % (Auto) (3-14) % Eos % (Auto) (2-4) % Baso % (Auto) (0-2) % Neut # (Auto) (1183-3205) /uL Lymph # (Auto) (4632-4976) /uL Callaway # (Auto) (0-900) /uL Eos # (Auto) (0-450) /uL Baso # (Auto) (0-100) /uL PT (10.1-12.7) SECONDS INR (0.9-1.3) APTT (26.4-36.2) SECONDS Sodium (137-145) mmol/L Potassium (3.4-5.1) mmol/L Chloride (98-107) mmol/L Carbon Dioxide (22-32) mmol/L BUN (7-17) mg/dL Creatinine (0.52-1.04) mg/dL Estimated GFR (>60) mL/min BUN/Creatinine Ratio (6-22) Glucose (70-100) mg/dL Lactate (0.7-2.1) mmol/L Calcium (8.4-10.2) mg/dL Magnesium (1.6-2.3) mg/dL Total Bilirubin (0.2-1.3) mg/dL AST (14-36) IU/L ALT (<35) IU/L Alkaline Phosphatase (38-126) U/L Total Creatine Kinase (30-135) U/L CK-MB (CK-2) CK-MB (CK-2) Rel Index Troponin I (0.01-0.034) ng/mL Total Protein (6.3-8.2) g/dL Albumin (3.5-5.0) g/dL Globulin (1.7-4.1) g/dL Albumin/Globulin Ratio (1.0-2.8) Lipase (23-300) U/L TSH 1.25 (0.47-4.68) uIU/mL HCG, Quant 43.1 mIU/mL Serum , Qual (Negative) Salicylates (<20) mg/dL Acetaminophen (10-30) ug/mL Ethyl Alcohol ( - 10) mg/dL SARS-CoV-2 (PCR) Negative (Negative) Point of Care Testing Glucose POC 107 Point of care testing: Point of Care Testing Glucose POC [address] scan - head: Radiologist's Impression: [address] [address] [address] Scan Report Signed Patient: Minna Arguello MR#: [id number] : 1990 Acct:[id number] Age/Sex: 30 / F Date of Service: 02/03/21 Loc: ED Accession Number: [id number] ?? Procedure: CT Stroke Ordering Provider: Francisco J Montanez D.O. PROCEDURE:? CT STROKE ? INDICATIONS:? code stroke ? TECHNIQUE:? Noncontrast 4.5 mm thick angled axial sections acquired from the foramen magnum to the vertex, with coronal reformats.? For radiation dose reduction, the following was used:? automated exposure control, adjustment of mA and/or kV according to patient size.? ? COMPARISON:? None. ? FINDINGS:? Image quality:? Excellent.? ? CSF spaces:? Basal cisterns are patent.? No extra-axial fluid collections.? The ventricles are symmetric in size and shape.? ? Brain:? No intracranial bleeds or masses.? There is cerebral volume loss for a ge, with resultant ventricular and sulcal prominence.? There are periventricular and deep white matter chronic small vessel ischemic changes.? There is intracranial internal carotid artery atherosclerosis.? ? Skull and face:? Calvarium and visualized facial bones appear intact, without suspicious lesions.? ? Sinuses:? Visualized sinuses and mastoids are clear.? ? ? IMPRESSION:? No acute intracranial disease process. ? Findings telephoned to Dr. Montanez on February 03, 2021 at 4:03 p.m PDST. ? ? This study fulfills neurological imaging criteria for inclusion or exclusion of acute stroke therapies based on available published neurological guidelines.? ? ? Dictated by: Marsha Alcazar MD, PhD on 02/03/2021 at 15:01 ? ? Approved by: Marsha Alcazar MD, PhD on 02/03/2021 at 15:05? CTA - brain/neck: Radiologist's Impression: [address] [address] [address] Scan Report Signed Patient: Minna Arguello MR#: [id number] : 1990 Acct:[id number] Age/Sex: 30 / F Date of Service: 02/03/21 Loc: ED Accession Number: [id number] ?? Procedure: CT angio head and neck Ordering Provider: Francisco J Montanez D.O. PROCEDURE:? CT ANGIO HEAD AND NECK ? INDICATIONS:? code stroke ? TECHNIQUE:? After the administration of intravenous contrast, 1 mm thick sections acquired from the aortic arch through the [place] of [place].? Post-contrast 4.5 mm thick sections then re-acquired from the foramen magnum to the vertex.? 3-dimensional [id number] (MIP) and/or volume rendering reformats were acquired of the central intracranial vasculature and neck separately. ? COMPARISON:? [facility], CT, CT STROKE, 02/03/2021, 15:50. ? FINDINGS:? Image quality:? Degraded by venous contrast opacification related to prior intravenous contrast ejection with early vein failure with injection site.? Contrast injection was repeated with different intravenous injection site. ? BRAIN:? CSF spaces:? Ventricles are normal in size and shape.? Basal cisterns are patent.? No extra-axial fluid collections.? ? Brain:? No midline shift.? No intracranial bleeds or masses.? Siegel-white matter interface appears intact.? ? Skull and face:? Calvarium and facial bones appear intact, without suspicious lesions.? Orbits appear normal.? ? Sinuses:? Sinuses and mastoids are clear.? ? HEAD CT ANGIOGRAPHY:? Anterior circulation:? Intracranial internal carotid arteries are normal in size and flow.? The flow within the paired anterior cerebral arteries is normal and symmetric.? The flow within the middle cerebral arteries is normal and symmetric.? The anterior communicating artery is seen.? No aneurysms are seen.? ? Posterior circulation:? Visualized portions of the vertebral arteries demonstrate normal caliber, and join to form a normal appearing basilar artery.? Flow within the posterior cerebral arteries is normal and symmetric.? No aneurysms are seen. ? Dural sinuses demonstrate normal postcontrast enhancement. ? ? NECK CT ANGIOGRAPHY:? Carotid system:? The great vessels demonstrate a conventional anatomy as they arise from the aortic arch.? The origins of the common carotid arteries appear patent.? The common carotid arteries demonstrate normal caliber and courses.? The bifurcation regions are both widely patent.? The internal carotid arteries demonstrate normal calibers and courses.? ? Posterior circulation:? The origins of the vertebral arteries both appear widely patent.? The more superior extracranial portions of both vertebral arteries also demonstrate normal courses and calibers.? They join to form a normal appearing basilar artery.? ? Soft tissues:? Visualized neck soft tissues demonstrate no suspicious abnormali ties.? ? Bones:? No suspicious bony lesions.? Visualized cervical spine appears normally aligned.? IMPRESSION:? ? 1. No acute intracranial disease process. ? 2. No large vessel occlusion, hemodynamically significant vascular stenosis, vascular dissection or aneurysm within limitations of the study.? ? Any quantitative measurements of stenosis were performed using NASCET criteria.? ? ? Dictated by: Marsha Alcazar MD, PhD on 02/03/2021 at 15:20 ? ? Approved by: Marsha Alcazar MD, PhD on 02/03/2021 at 15:34? ECG Data Attestation: I personally reviewed and interpreted this ECG as follows: Interpretation: Sinus rhythm Ventricular rate 87 Normal axis Normal QRS Normal QTC No ST T wave changes MDM Narrative Medical decision making narrative: Patient initially arrived as a code stroke. The CTA and CT of her head were unremarkable. She did have an NIH score of 9. She is unable to lift her left arm nor her left leg. She is unable to do [id number]-wu-[id number] on the left side and has subjective decrease in sensation left side of her face. It was initially boarded that the onset of her symptoms was approximately 1 hour prior to arrival. Was also reported that she did use methamphetamine just prior to the onset of the symptoms however she does state that she is having a headache and the headache has been going on all day. She did fall earlier today which was initially not mention to nursing staff during triage. She is unsure as to how she fell. She also denies that she is having any weakness on her left side. Given the fact that she fell earlier today and is unsure how she fell and the denial of her left-sided weakness I do have some concern that potentially she was having some weakness earlier today but either did not recognize it or it nor this fact. She is also having a headache that is been going on throughout the day. Her test is also positive. Review the note shows that she was seen here in the emergency department several days ago for what was thought to be a spontaneous miscarriage. Her quantitative level at that point was only 80. We do not have that result back today. I did discuss the case with Stroke Neurology. Given the question about her , the question of the onset of her symptoms the decision was made not to give the patient tPA. Is also other etiologies such as her methamphetamine use and also potentially a hemiplegic migraine that could explain her symptoms. Initial treatment for migraine was unsuccessful. Will treat with pain medication. MRI was ordered. I have low suspicion for seizure based on her presentation. Care turned over to Dr. Tesfaye to follow-up on MRI and disposition. Patient signed out to myself. Seen an independently evaluated and examined by myself. On repeat evaluation patient has an NIH of 3. She has some effort with her left arm against gravity. And some sensation change but otherwise her lower extremities appear to be intact she does not appear to be ataxic. Patient's MRI is negative except for prominent bilateral tonsils. CT and CT angio did not show acute changes. Patient was not given tPA as there was a reported question about the time frame as well as possible hCG was repeated and is trending down words consistent with miscarriage. Patient does admit to smoking methamphetamines but no other IV drugs. She has not had similar symptoms in the past. She did have a fall but states her low back causes her some discomfort. She denies pain in her left arm or upper back at this time. She continues to have headache she was ordered multiple medications by Dr. Montanez which did not resolve her symptoms but did seem to improve it. Her case was discussed with Stroke Neurology and stroke worse is hemiplegic migraine were within the differential. They did recommend the MRI which is noted above is negative. Case was discussed with neurology after MRI which is negative today. Recommendations are included in at this time patient's NIH being 3 plan for admission with continued treatment of headache to see if her symptoms resolve and if they do not pursue further workup. <Belle Tesfaye, DO - Last Filed: 02/04/21 03:21> Lab Data Labs: Lab Results 02/03/21 02/03/21 02/03/21 Range/Units 14:59 14:59 14:59 WBC 7.8 (4.5-11.0) X10^3/uL RBC 5.09 (4.0-5.2) X10^6/uL Hgb 13.9 (12.0-16.0) g/dL Hct 42.8 (36-46) % MCV 84.1 (80-100) fL MCH 27.3 (26-34) PG MCHC 32.5 (30-36) % RDW 14.9 H (11.6-14.8) % Plt Count 302 (150-400) X10^3/uL Neut % (Auto) 55.4 (50-75) % Lymph % (Auto) 33.4 (25-40) % Callaway % (Auto) 7.4 (3-14) % Eos % (Auto) 3.2 (2-4) % Baso % (Auto) 0.6 (0-2) % Neut # (Auto) 4300 (1494-3603) /uL Lymph # (Auto) 2600 (3086-2727) /uL Callaway # (Auto) 600 (0-900) /uL Eos # (Auto) 300 (0-450) /uL Baso # (Auto) 0 (0-100) /uL PT (10.1-12.7) SECONDS INR (0.9-1.3) APTT (26.4-36.2) SECONDS Sodium 138 (137-145) mmol/L Potassium 3.9 (3.4-5.1) mmol/L Chloride 103 (98-107) mmol/L Carbon Dioxide 25 (22-32) mmol/L BUN 16 (7-17) mg/dL Creatinine 0.79 (0.52-1.04) mg/dL Estimated GFR > 60.0 (>60) mL/min BUN/Creatinine Ratio 20.3 (6-22) Glucose 107 H (70-100) mg/dL Lactate (0.7-2.1) mmol/L Calcium 9.7 (8.4-10.2) mg/dL Magnesium 2.0 (1.6-2.3) mg/dL Total Bilirubin 0.4 (0.2-1.3) mg/dL AST 22 (14-36) IU/L ALT 16 (<35) IU/L Alkaline Phosphatase 60 (38-126) U/L Total Creatine Kinase 50 (30-135) U/L CK-MB (CK-2) TNP CK-MB (CK-2) Rel Index TNP Troponin I < 0.012 (0.01-0.034) ng/mL Total Protein 7.2 (6.3-8.2) g/dL Albumin 4.3 (3.5-5.0) g/dL Globulin 2.9 (1.7-4.1) g/dL Albumin/Globulin Ratio 1.5 (1.0-2.8) Lipase 28 (23-300) U/L TSH (0.47-4.68) uIU/mL HCG, Quant mIU/mL Serum , Qual (Negative) Salicylates < 1.0 (<20) mg/dL Acetaminophen < 10 L (10-30) ug/mL Ethyl Alcohol < 10 ( - 10) mg/dL SARS-CoV-2 (PCR) (Negative) 02/03/21 02/03/21 02/03/21 Range/Units 14:59 16:05 16:05 WBC (4.5-11.0) X10^3/uL RBC (4.0-5.2) X10^6/uL Hgb (12.0-16.0) g/dL Hct (36-46) % MCV (80-100) fL MCH (26-34) PG MCHC (30-36) % RDW (11.6-14.8) % Plt Count (150-400) X10^3/uL Neut % (Auto) (50-75) % Lymph % (Auto) (25-40) % Callaway % (Auto) (3-14) % Eos % (Auto) (2-4) % Baso % (Auto) (0-2) % Neut # (Auto) (9291-6196) /uL Lymph # (Auto) (7872-0848) /uL Callaway # (Auto) (0-900) /uL Eos # (Auto) (0-450) /uL Baso # (Auto) (0-100) /uL PT 12.4 (10.1-12.7) SECONDS INR 1.1 (0.9-1.3) APTT 35 (26.4-36.2) SECONDS Sodium (137-145) mmol/L Potassium (3.4-5.1) mmol/L Chloride (98-107) mmol/L Carbon Dioxide (22-32) mmol/L BUN (7-17) mg/dL Creatinine (0.52-1.04) mg/dL Estimated GFR (>60) mL/min BUN/Creatinine Ratio (6-22) Glucose (70-100) mg/dL Lactate 1.4 (0.7-2.1) mmol/L Calcium (8.4-10.2) mg/dL Magnesium (1.6-2.3) mg/dL Total Bilirubin (0.2-1.3) mg/dL AST (14-36) IU/L ALT (<35) IU/L Alkaline Phosphatase (38-126) U/L Total Creatine Kinase (30-135) U/L CK-MB (CK-2) CK-MB (CK-2) Rel Index Troponin I (0.01-0.034) ng/mL Total Protein (6.3-8.2) g/dL Albumin (3.5-5.0) g/dL Globulin (1.7-4.1) g/dL Albumin/Globulin Ratio (1.0-2.8) Lipase (23-300) U/L TSH (0.47-4.68) uIU/mL HCG, Quant mIU/mL Serum , Qual Positive H (Negative) Salicylates (<20) mg/dL Acetaminophen (10-30) ug/mL Ethyl Alcohol ( - 10) mg/dL SARS-CoV-2 (PCR) (Negative) 02/03/21 02/03/21 02/03/21 Range/Units 16:05 16:05 16:08 WBC (4.5-11.0) X10^3/uL RBC (4.0-5.2) X10^6/uL Hgb (12.0-16.0) g/dL Hct (36-46) % MCV (80-100) fL MCH (26-34) PG MCHC (30-36) % RDW (11.6-14.8) % Plt Count (150-400) X10^3/uL Neut % (Auto) (50-75) % Lymph % (Auto) (25-40) % Callaway % (Auto) (3-14) % Eos % (Auto) (2-4) % Baso % (Auto) (0-2) % Neut # (Auto) (4137-9785) /uL Lymph # (Auto) (6632-8775) /uL Callaway # (Auto) (0-900) /uL Eos # (Auto) (0-450) /uL Baso # (Auto) (0-100) /uL PT (10.1-12.7) SECONDS INR (0.9-1.3) APTT (26.4-36.2) SECONDS Sodium (137-145) mmol/L Potassium (3.4-5.1) mmol/L Chloride (98-107) mmol/L Carbon Dioxide (22-32) mmol/L BUN (7-17) mg/dL Creatinine (0.52-1.04) mg/dL Estimated GFR (>60) mL/min BUN/Creatinine Ratio (6-22) Glucose (70-100) mg/dL Lactate (0.7-2.1) mmol/L Calcium (8.4-10.2) mg/dL Magnesium (1.6-2.3) mg/dL Total Bilirubin (0.2-1.3) mg/dL AST (14-36) IU/L ALT (<35) IU/L Alkaline Phosphatase (38-126) U/L Total Creatine Kinase (30-135) U/L CK-MB (CK-2) CK-MB (CK-2) Rel Index Troponin I (0.01-0.034) ng/mL Total Protein (6.3-8.2) g/dL Albumin (3.5-5.0) g/dL Globulin (1.7-4.1) g/dL Albumin/Globulin Ratio (1.0-2.8) Lipase (23-300) U/L TSH 1.25 (0.47-4.68) uIU/mL HCG, Quant 43.1 mIU/mL Serum , Qual (Negative) Salicylates (<20) mg/dL Acetaminophen (10-30) ug/mL Ethyl Alcohol ( - 10) mg/dL SARS-CoV-2 (PCR) Negative (Negative) Point of Care Testing Glucose POC 107 Point of care testing: Point of Care Testing Glucose POC 107 Imaging Data MRI brain w/o contrast.: Radiologist's Impression: Minna Arguello??30??F??1990 ? Allergy/Adv: methocarbamol, Penicillins (More??) Close Brain MRI (Signed) Jose Guadalupe Cain - 02/03/21 Head/Neck CTA (Signed) OttonielNolberto salinasence - 02/03/[address] (Signed) Nolberto Alcazarence - 02/03/21 Launch?[address] [address] Magnetic Resonance Report Signed Patient: Minna Arguello MR#: [id number] : 1990 Acct:[id number] Age/Sex: 30 / F Date of Service: 02/03/21 Loc: ED Accession Number: [id number] ?? Procedure: MR head/brain wo con Ordering Provider: Francisco J Montanez D.O. PROCEDURE:? MR HEAD/BRAIN WO CON ? INDICATIONS:? L sided weakness ? TECHNIQUE:? Noncontrast axial T1 spin echo, axial T2 fast spin echo, sagittal and axial FLAIR, coronal T2 fast spin echo, axial gradient echo, axial diffusion and ADC through the brain.? ? COMPARISON:? None. ? FINDINGS:? Image quality:? Excellent.? ? CSF Spaces:? Basal cisterns are patent.? No extra-axial fluid collections.? Ventricles are normal in size and shape.? ? Brain:? No intracranial masses or hemorrhage.? Siegel/white matter interface is normal.? Brainstem appears normal.? Diffusion-weighted images demonstrate no acute ischemic insult.? No chronic ischemic insults.? Normal intravascular flow voids are present.? ? Skull and face:? Calvarium has normal marrow signal.? Orbits appear normal.? ? Sinuses:? Sinuses and mastoids are clear.? ? Miscellaneous:? Incidental note made of prominent bilateral tonsillar pillars. ? IMPRESSION:? ? 1. Normal appearance of brain parenchyma.? No evidence acute stroke, hemorrhage, or mass. ? 2. Incidental note made of prominent bilateral tonsils. ? ? Dictated by: Jose Guadalupe Cain M.D. on 02/03/2021 at 20:05 ? ? Approved by: Jose Guadalupe Cain M.D. on 02/03/2021 at 20:07? MDM Narrative Medical decision making narrative: Patient initially arrived as a code stroke. The CTA and CT of her head were unremarkable. She did have an NIH score of 9. She is unable to lift her left arm nor her left leg. She is unable to do wquzak-wu-ayoz on the left side and has subjective decrease in sensation left side of her face. It was initially boarded that the onset of her symptoms was approximately 1 hour prior to arrival. Was also reported that she did use methamphetamine just prior to the onset of the symptoms however she does state that she is having a headache and the headache has been going on all day. She did fall earlier today which was initially not mention to nursing staff during triage. She is unsure as to how she fell. She also denies that she is having any weakness on her left side. Given the fact that she fell earlier today and is unsure how she fell and the denial of her left-sided weakness I do have some concern that potentially she was having some weakness earlier today but either did not recognize it or it nor this fact. She is also having a headache that is been going on throughout the day. Her test is also positive. Review the note shows that she was seen here in the emergency department several days ago for what was thought to be a spontaneous miscarriage. Her quantitative level at that point was only 80. We do not have that result back today. I did discuss the case with Stroke Neurology. Given the question about her , the question of the onset of her symptoms the decision was made not to give the patient tPA. Is also other etiologies such as her methamphetamine use and also potentially a hemiplegic migraine that could explain her symptoms. Initial treatment for migraine was unsuccessful. Will treat with pain medication. MRI was ordered. Care turned over to Dr. Tesfaye to follow-up on MRI and disposition. Patient signed out to myself. Seen an independently evaluated and examined by m loree. On repeat evaluation patient has an NIH of 3. She has some effort with her left arm against gravity. And some sensation change but otherwise her lower extremities appear to be intact she does not appear to be ataxic. Patient's MRI is negative except for prominent bilateral tonsils. CT and CT angio did not show acute changes. Patient was not given tPA as there was a reported question about the time frame as well as possible hCG was repeated and is trending down words consistent with miscarriage. Patient does admit to smoking methamphetamines but no other IV drugs. She has not had similar symptoms in the past. She did have a fall but states her low back causes her some discomfort. She denies pain in her left arm or upper back at this time. She continues to have headache she was ordered multiple medications by Dr. Montanez which did not resolve her symptoms but did seem to improve it. Her case was discussed with Stroke Neurology and stroke worse is hemiplegic migraine were within the differential. They did recommend the MRI which is noted above is negative. Case was discussed with neurology after MRI which is negative today. Recommendations are included in at this time patient's NIH being 3 plan for admission with continued treatment of headache to see if her symptoms resolve and if they do not pursue further workup. Discharge Plan Departure Patient Disposition: Admitted as Observation Clinical Impression: Hemiplegic migraine Admit Date/Time: 02/03/21 22:18 Admit Provider: Kylie Reaves
[2021-02-03 16:42] LABS: Pregnancy Test Serum,Qual Positive (Negative)
[2021-02-03 17:17] LABS: Thyroid Stimulating Hormone 1.25 uIU/mL (0.47-4.68)
[2021-02-03 17:21] LABS: HCG Quantitative /Beta subunit 43.1 mIU/mL
[2021-02-03] MEDS: METOCLOPRAMIDE 10 MG/2 ML INJ IV (17:28)
[2021-02-03] MEDS: diphenhydrAMINE 50 MG/ML VIAL 25 MG IV (17:28)
--- NOTE | 2021-02-03 17:28 | RT ---
Responded to code stroke, pt on room air and no distress noted. Airway patent and released by rn
[2021-02-03] MEDS: KETOROLAC 30 MG/ML VIAL IV (17:29)
[2021-02-03] MEDS: SODIUM CHLORIDE 0.9% 1,000 ML 1000 ML IV (17:33)
[2021-02-03 18:14] LABS: COVID19 - ADMIT (NP swab/PCR) Negative (Negative)
--- NOTE | 2021-02-03 18:49 | DI.MRI.S_ITS ---
PROCEDURE: MR HEAD/BRAIN WO CON INDICATIONS: L sided weakness TECHNIQUE: Noncontrast axial T1 spin echo, axial T2 fast spin echo, sagittal and axial FLAIR, coronal T2 fast spin echo, axial gradient echo, axial diffusion and ADC through the brain. COMPARISON: None. FINDINGS: Image quality: Excellent. CSF Spaces: Basal cisterns are patent. No extra-axial fluid collections. Ventricles are normal in size and shape. Brain: No intracranial masses or hemorrhage. Siegel/white matter interface is normal. Brainstem appears normal. Diffusion-weighted images demonstrate no acute ischemic insult. No chronic ischemic insults. Normal intravascular flow voids are present. Skull and face: Calvarium has normal marrow signal. Orbits appear normal. Sinuses: Sinuses and mastoids are clear. Miscellaneous: Incidental note made of prominent bilateral tonsillar pillars. IMPRESSION: 1. Normal appearance of brain parenchyma. No evidence acute stroke, hemorrhage, or mass. 2. Incidental note made of prominent bilateral tonsils. Dictated by: Jose Guadalupe Cain M.D. on 02/03/2021 at 20:05 Approved by: Jose Guadalupe Cain M.D. on 02/03/2021 at 20:07
[2021-02-03] MEDS: HYDROMORPHONE 1 MG INJ IV ×2 (18:54→22:06)
[2021-02-03] MEDS: ACETAMINOPHEN 325 MG TABLET 650 MG PO (23:35)
[2021-02-03] MEDS: IBUPROFEN 600 MG TABLET PO (23:35)
[2021-02-03] MEDS: SODIUM CHLORIDE 0.9% 1,000 ML 100 ML IV (23:37)
--- NOTE | 2021-02-03 23:38 | P.HP_ITS ---
History of Present Illness History of Present Illness Date Patient Seen: 02/03/21 Time Patient Seen: 23:00 Chief complaint: Hemiplegic migraine vs stroke Narrative: Minna Arguello is a 30 y.o. female currently miscarrying who presented to the ED with a severe headache that progressed to left sided weakness. Patient is not very forthcoming about times, but the ED report estimates onset of her symptoms started at 2:30 p.m. today. She stated that the headache happened early this morning and then she had nausea with vomiting before the weakness she also stated that she had tightness around her chest. She has been constipated. In she is currently miscarrying. She has been seen in the emergency department over several days over the past month on to confirm this. Per the emergency department she had a NIH of 9 and they contacted initially the [facility] and because of a question about onset of symptoms she was not deemed to be a candidate for tPA. Her symptoms did not appear to resolve and she remained in the emergency department through the evening of which they again consulted non Stroke Team Neurology at [facility] who suggested that she might have a hemiplegic migraine. Their recommendation was for the patient to stay overnight be observed, have serial NIH scores done and if her symptoms do not resolve by the morning to have a MRI with contrast of her brain. Patient is afebrile, blood pressure 113/68, heart rate 74, respiratory rate 16, oxygen saturation 97% on room air she weighs 111 kg with a BMI of 37.5. CBC is unremarkable, chemistries are also unremarkable, coagulation panel is normal, she has a mildly elevated glucose of 107, troponin is 0.12, lipase 28, TSH 1.25, she is positive for , COVID-19 PCR is negative, UDS is pending. Patient History Medical History Bartholin's gland abscess Methamphetamine abuse Miscarriage Opioid abuse Vaginal bleeding Surgical History History of lithotripsy Status post breast reduction Family & Social History Family history unavailable: Yes (States adopted) Social History: household members friend(s) Prior Living Arrangements House Safety & Behavioral: Feels Safe in Current Yes Environment Been Physically Hurt or No Threatened By a Person Suicidal Ideation Description None Suicide Plan Description No Plan Tobacco & Substance use: Tobacco type cigarettes Smoking Status Current every day smoker Smoking packs per day 1+ alcohol intake frequency 3 or more drinks per day Substance Use Type marijuana,fentanyl,methamphetamine Meds Home Medications and Allergies Home Medications Medication Instructions Recorded Confirmed Type oxycodone-acetaminophen 5 mg-325 0 tab PO Q4HP PRN #30 tab 01/25/17 Rx mg tablet (Percocet) Effexor 01/24/21 History buspirone 01/24/21 History ondansetron 4 mg disintegrating 4 mg PO Q8H PRN #10 tab 01/31/21 Rx tablet Allergies Allergy/AdvReac Type Severity Reaction Status Date / Time methocarbamol [METHOCARBAMOL] Allergy Unknown SHARP Verified 02/03/21 16:23 DECREASE IN O2 SATS Penicillins Allergy Verified 02/03/21 16:23 Review of Systems Review of Systems ROS: Yes unobtainable due to mental status Exam Vital Signs (past 8 hours): - 02/03/21 15:41 02/03/21 16:18 02/03/21 16:19 Pulse Rate 96 H 91 H Respiratory Rate 11 L Blood Pressure 133/82 127/68 Pulse Oximetry 99 87 L 96 02/03/21 16:30 02/03/21 17:00 02/03/21 17:30 Pulse Rate 99 H 96 H 88 Respiratory Rate 22 21 20 Blood Pressure 128/74 116/74 Pulse Oximetry 98 97 99 02/03/21 18:00 02/03/21 18:30 02/03/21 19:00 Pulse Rate 90 72 88 Respiratory Rate 15 18 17 Blood Pressure 128/82 106/71 114/79 Pulse Oximetry 100 98 99 02/03/21 22:06 Pulse Rate 86 Respiratory Rate 18 Blood Pressure 117/60 Pulse Oximetry 97 Oxygen Delivery Method Room Air Narrative Exam Narrative: Gen: Alert, oriented, obese 30 y.o. female, midly distressed HEENT: normocephalic, atraumatic, conjunctiva clear, sclera non-icteric, oral mucosa pink and moist Neck: supple, full ROM, no JVD, trachea is midline Resp: Lungs CTA, non-labored breathing CV: RRR, no murmur or rubs Abd: soft, non-tender, normoactive BTs Skin: no lesions or rashes, dry and intact Neuro: Last NIH scale 7 Alert and oriented X 3 w/no focal deficits. Mumbling Extremities: moves all 4 extremities, is ambulatory, left calf pain Psyche: depressed and anxious affect. Objective Labs Result Diagrams: 02/03/21 14:59 02/03/21 14:59 Labs: Laboratory Results - last 24 hr 02/03/21 02/03/21 02/03/21 14:59 14:59 14:59 WBC 7.8 RBC 5.09 Hgb 13.9 Hct 42.8 MCV 84.1 MCH 27.3 MCHC 32.5 RDW 14.9 H Plt Count 302 Neut % (Auto) 55.4 Lymph % (Auto) 33.4 [place] % (Auto) 7.4 Eos % (Auto) 3.2 Baso % (Auto) 0.6 Neut # (Auto) 4300 Lymph # (Auto) 2600 [place] # (Auto) 600 Eos # (Auto) 300 Baso # (Auto) 0 PT INR APTT Sodium 138 Potassium 3.9 Chloride 103 Carbon Dioxide 25 BUN 16 Creatinine 0.79 Estimated GFR > 60.0 BUN/Creatinine Ratio 20.3 Glucose 107 H Lactate Calcium 9.7 Magnesium 2.0 Total Bilirubin 0.4 AST 22 ALT 16 Alkaline Phosphatase 60 Total Creatine Kinase 50 CK-MB (CK-2) TNP CK-MB (CK-2) Rel Index TNP Troponin I < 0.012 Total Protein 7.2 Albumin 4.3 Globulin 2.9 Albumin/Globulin Ratio 1.5 Lipase 28 TSH HCG, Quant Serum , Qual Salicylates < 1.0 Acetaminophen < 10 L Ethyl Alcohol < 10 SARS-CoV-2 (PCR) 02/03/21 02/03/21 02/03/21 14:59 16:05 16:05 WBC RBC Hgb Hct MCV MCH MCHC RDW Plt Count Neut % (Auto) Lymph % (Auto) [place] % (Auto) Eos % (Auto) Baso % (Auto) Neut # (Auto) Lymph # (Auto) [place] # (Auto) Eos # (Auto) Baso # (Auto) PT 12.4 INR 1.1 APTT 35 Sodium Potassium Chloride Carbon Dioxide BUN Creatinine Estimated GFR BUN/Creatinine Ratio Glucose Lactate 1.4 Calcium Magnesium Total Bilirubin AST ALT Alkaline Phosphatase Total Creatine Kinase CK-MB (CK-2) CK-MB (CK-2) Rel Index Troponin I Total Protein Albumin Globulin Albumin/Globulin Ratio Lipase TSH HCG, Quant Serum , Qual Positive H Salicylates Acetaminophen Ethyl Alcohol SARS-CoV-2 (PCR) 02/03/21 02/03/21 02/03/21 16:05 16:05 16:08 WBC RBC Hgb Hct MCV MCH MCHC RDW Plt Count Neut % (Auto) Lymph % (Auto) [place] % (Auto) Eos % (Auto) Baso % (Auto) Neut # (Auto) Lymph # (Auto) [place] # (Auto) Eos # (Auto) Baso # (Auto) PT INR APTT Sodium Potassium Chloride Carbon Dioxide BUN Creatinine Estimated GFR BUN/Creatinine Ratio Glucose Lactate Calcium Magnesium Total Bilirubin AST ALT Alkaline Phosphatase Total Creatine Kinase CK-MB (CK-2) CK-MB (CK-2) Rel Index Troponin I Total Protein Albumin Globulin Albumin/Globulin Ratio Lipase TSH 1.25 HCG, Quant 43.1 Serum , Qual Salicylates Acetaminophen Ethyl Alcohol SARS-CoV-2 (PCR) Negative Assessment & Plan Assessment & Plan narrative: Minna Arguello is placed into observation to assist her with clearing symptoms for a suspected hemiplegic headache. She may also be experiencing withdrawal from fentanyl and methamphetamine. 1. Suspected hemiplegic migraine vs CVA * CT scan of the brain was negative * if with persistent sxs, Neurology recommends a MRI of the brain w/contrast which is ordered for 10 am. * NIH scales q shift * Ibuprofen/tylenol for pain * UTD recommendation for use of daily or twice daily verapramil 120 extended release initially once daily and can titrate up to 120 mg bid. * She will need to followup with outpatient neurology 2. Methamphetamine and fentanyl abuse * UDS is pending * consult * Last use stated to be 02/03. * She is likely a high risk for AMA once she feels better 3. Possible seratonin withdrawal syndrome * It is unknown if she stopped using venlafaxine and buspirone abruptly and may be having symptoms due to this. VTE Prophylaxis: Wells risk score 1.5 Enoxaparin 40 mg subQ once daily Patient is placed into observation as her stay is not expected to exceed 2 midnights. FEN: IV fluids: NS at 100 ml/hour, diet: heart healthy, labs: CBC, C/BMP, liver enzymes, Mag, PT/INR Consultants None Dispo: unknown at this time Code status: full code as discussed with the patient who identifies her mother as her surrogate and POA. [X] I have utilized all available immediate resources to obtain, update, or review of the patient's current medications COVID-19 COVID-19 status: Negative Result date/Date tested (Pos, Neg/Pending): 02/03/21 Scores GCS [place] coma scale eye opening: To sound Karen coma scale verbal response: Orientated Karen coma scale motor response: Obey commands [place] coma scale total score: 14 Wells' Criteria for PE Clinical signs and symptoms of DVT: No PE is #1 Dx or equally likely: No Heart rate > 100: No Immobilization at least 3 days or surg in previous 4 weeks: Yes History of PE or DVT: No Hemoptysis: No Malignancy w/Treatment within 6 months or palliative: No Wells' PE Score total: 1.5 Quality VTE Deep Vein Thrombosis/Pulmonary Embolism Present on Admission: No MIPS - Admit I confirm the patient?s Advance Care Plan is present, Code status is documented, Surrogate decision maker is in patient?s record [If Yes, STOP here]: Yes MIPS - DC The patient has current or prior documentation of left ventricular ejection fraction (LVEF) less than 40%, or moderate or severely depressed left ventricular systolic function.: No
[2021-02-04] VITALS (7 sets, daily range): BP systolic 103–138; BP diastolic 56–89; PULSE 68–98; RESP 16–20; TEMP 36–36.9; O2SAT 95–100
[2021-02-04 04:52] LABS: Ur Creatinine 50 (Normal); Ur Specific Gravity 1.015 (Normal); Urine pH 7 (Normal)
[2021-02-04 04:53] LABS: UR Morphine/Opiate cutoff 300 Positive (Negative); Urine Amphetamines Positive (Negative); Urine Barbiturates Negative (Negative); Urine Benzodiazepines Negative (Negative); Urine Cocaine Negative (Negative); Urine MDMA Positive (Negative); Urine Methadone Negative (Negative); Urine Methamphetamines Positive (Negative); Urine Oxycodone Negative (Negative); Urine Phencyclidine Negative (Negative); Urine Tetrahydrocannabinol Positive (Negative); Urine Tricyclic Antidepressant Positive (Negative)
[2021-02-04 05:58] LABS: Appearance Urine UA CLEAR; Bilirubin Urine UA NEGATIVE (NEGATIVE); Color Urine UA YELLOW; Glucose Urine UA NEGATIVE (Negative); Ketones Urine UA NEGATIVE (NEGATIVE); Leukocyte Esterase Urine UA NEGATIVE (NEGATIVE); Nitrite Urine UA NEGATIVE (Negative); Occult Blood Urine UA 3+ (Negative); Protein Urine UA 1+ (Negative); Urobilinogen Urine UA 0.2 E.U./dL (0.2)
[2021-02-04 06:00] LABS: pH Urine UA 6.5 (4.5-8.0)
[2021-02-04] MEDS: IBUPROFEN 600 MG TABLET PO (06:19)
[2021-02-04] MEDS: ACETAMINOPHEN 325 MG TABLET 650 MG PO ×2 (06:20→20:30)
[2021-02-04 06:36] LABS: RBC Urine 0-1/HPF (0-5/HPF); Squamous Epithelial Cell Urine 1-5 /HPF (0-5/HPF); WBC Urine 1-5/HPF (0-5/HPF)
[2021-02-04 06:37] LABS: Bacteria Urine Few (2-10); Culture Indicated Urine Cult Not Indicated
--- NOTE | 2021-02-04 06:37 | PC.ADMIT ---
[id number] Haley Admission Note: Patient arrived to floor from ER at 22:45. Patient shown how to use call light, bed alarm on. NS running at 100ml/hr. NIH 7. VSS, afebrile. The patient,Minna Arguello,30 y/o, was given written information regarding hospital policies, unit procedures and contact persons. Patient's smoking status: Current every day smoker. Vital Signs - 8 hr 02/03/21 22:46 02/04/21 01:00 02/04/21 04:22 Temperature 97.8 F 96.9 F L 97.2 F L Pulse Rate 74 72 74 Respiratory Rate 16 16 16 Blood Pressure 113/68 129/74 124/75 Pulse Oximetry 97 100 95
[2021-02-04] MEDS: SODIUM CHLORIDE 0.9% 1,000 ML 100 ML IV (06:58)
[2021-02-04 08:03] LABS: Add Manual Diff / Slide Review NO; Basophils Absolute Auto 100 /uL (0-100); Basophils Percent Auto 1.4 % (0-2); Eosinophils Absolute Auto 400 /uL (0-450); Eosinophils Percent Auto 6.4 % (2-4); Hematocrit 34.7 % (36-46); Hemoglobin 11.5 g/dL (12.0-16.0); Lymphocytes Absolute Auto 2300 /uL (1100-4500); Mean Corpuscular HGB Conc 33.2 % (30-36); Mean Corpuscular Hemoglobin 27.2 PG (26-34); Mean Corpuscular Volume 81.8 fL (80-100); Monocytes Absolute Auto 700 /uL (0-900); Monocytes Percent Auto 9.9 % (3-14); Neutrophils Absolute Auto 3400 /uL (1500-7000); Neutrophils Percent Auto 49.3 % (50-75); Platelet Count 271 X10^3/uL (150-400); Red Blood Cell Count 4.24 X10^6/uL (4.0-5.2); Red Cell Distribution Width 14.5 % (11.6-14.8); White Blood Cell Count 6.9 X10^3/uL (4.5-11.0)
[2021-02-04 08:21] LABS: Alanine Aminotransferase 12 IU/L (<35); Albumin 3.2 g/dL (3.5-5.0); Albumin Globulin Ratio 1.1 (1.0-2.8); Alkaline Phosphatase 46 U/L (38-126); Aspartate Aminotransferase 18 IU/L (14-36); Bilirubin Total 0.5 mg/dL (0.2-1.3); Bilirubin Unconjugated 0.4 mg/dL (0.0-1.1); Blood Urea Nitrogen 14 mg/dL (7-17); Calcium 8.7 mg/dL (8.4-10.2); Carbon Dioxide 26 mmol/L (22-32); Chloride 107 mmol/L (98-107); Cholesterol 153 mg/dL (140-199); Estimated Glomerular Filt Rate > 60.0 mL/min (>60); Globulin 2.8 g/dL (1.7-4.1); Glucose 90 mg/dL (70-100); HDL Cholesterol 30 mg/dL (40-60); HEMOLYSIS < 15 (0-50); LDL Cholesterol Calculated 94 mg/dL (<100); Potassium 3.8 mmol/L (3.4-5.1); Sodium 137 mmol/L (137-145); Triglycerides 147 mg/dL (35-150)
--- NOTE | 2021-02-04 10:04 | PT.IIE ---
Surgical History (Last Reviewed 02/04/21 @ 00:39 by SHOAIB Davis) History of lithotripsy Status post breast reduction Medical History (Last Reviewed 02/04/21 @ 00:39 by SHOAIB Davis) Bartholin's gland abscess Methamphetamine abuse Miscarriage Opioid abuse Vaginal bleeding Physical Therapy Inpatient Evaluation/Re-Eval M1 PT/OT-IP Prior Functional Status Start: 02/04/21 13:12 Freq: NEEDED Status: Active Protocol: Document 02/04/21 10:04 AB (Rec: 02/04/21 13:23 [email or web address]) Medical Review Prior Functional Status Medical History Reviewed Yes Communication able to make needs known Mobility and Gait pt stated that she is independent with all mobilities and ambulation without AD Social History Household Members family Living Arrangements House Number of Floors (Floors) One Floor Number of Stairs To Enter/Railing? 5 steps to enter with B rails Home Environment Standard Height Toilet,Walk in Shower,Built-In Shower Seat Home Equipment Hand Held Shower,Grab Bars Near Toilet,Grab Bars In Shower Additional Social History Comment pt stated that her mom will be able to assist her if needed M2 PT-IP Current Condition Start: 02/04/21 13:12 Freq: NEEDED Status: Active Protocol: Document 02/04/21 10:04 AB (Rec: 02/04/21 13:23 [email or web address]) Physical Therapy Current Condition Current Condition Evaluation Date 02/04/21 Treatment Diagnosis r/o CVA with L sided weakness; difficulty in walking Onset Date 02/03/21 M3 PT-IP Subjective Start: 02/04/21 13:12 Freq: NEEDED Status: Active Protocol: Document 02/04/21 10:04 AB (Rec: 02/04/21 13:23 [email or web address]) Subjective Physical Therapy Visit Type Type Initial Evaluation Visit Start Time 10:04 Visit Stop Time 10:35 Total Visit Minutes 31 Number of MAGNETIC PROSPECTING OPERATOR Visits 0 Physical Therapy Visit Comments Patient Comments pt is agreeable to do PT Therapy Pain Assessment Pain When Pain Assessed At Rest Pain Present Pain Present Pain Reported Location Head Intensity 3 Scale Used Numeric (0 - 10) Pain Management Techniques Modification of Treatment,Re- positioning,Timing of Activity with Medications M4 PT-IP Mobility and Gait Start: 02/04/21 13:12 Freq: NEEDED Status: Active Protocol: Document 02/04/21 10:04 AB (Rec: 02/04/21 13:23 [email or web address]) PT-Bed Mobility Assessment Supine to Sit Supine to Sit Standby Assistance PT-Transfer Assessment Sit to and From Stand Sit to and from Stand Minimal Assistance,2 Person Assistance,Use of Upper Extremities Equipment Transfer Assistive Device Gait Belt,Front Wheeled Walker Orthotic/Prosthetic Devices or Brace: No Transfers Transfer Destination Chair Transfer Technique Stand Step Pivot Transfer Ability Level of Assist Maximum Assistance,2 Person Assistance,Use of Upper Extremities Comments Mobility Comments pt completed supine to sit SBA . Able to sit on EOB SBA. completed sit to stand min A. attempted to transfer to chair but pt leaning trunk forward instead of lifting BLE to step pivot requiring max A x 2 for balance. instructed pt to sit back down to the bed . pt presents with decrease motor planning. educated pt on techniques for transfering to the chair using FWW. completed sit to stand again min A, step transfer using FWW max A x 2 and max cues. max A x 2 for controlled descent to chair. positioned pt on chair. call light and table placed within reach. Gait Assessment Comments Gait Comments unable a this time PT-Balance Assessment Sitting Balance and Reactions Static Sitting Balance Ability Good Dynamic Sitting Balance Ability Fair Standing Balance and Reactions Static Standing Balance Ability Poor Dynamic Standing Balance Ability Poor Device Used FWW M5 PT-IP Objective Assessments Start: 02/04/21 13:12 Freq: NEEDED Status: Active Protocol: Document 02/04/21 10:04 AB (Rec: 02/04/21 13:23 [email or web address]) Orientation Orientation/Cognition Level of Alertness Alert Orientation Name Safety Awareness Decreased Safety Awareness Gross Range of Motion Lower Extremity ROM Assessment Within Functional Limits Strength Lower Extremity Strength Assessment Left Impaired Hip 3-/5 Knee 3-/5 Ankle 1/5 Coordination Assessment Gross Coordination Gross Coordination Impaired Sensation Assessment Sensation Gross Sensation Left UE Impaired,Left LE Impaired Sensation Description Numbness Comments Sensation Comments stated that LUE has only 50% sensation, LLE has more but also numb Muscle Tone Muscle Tone WNL No Muscle Tone Location Left Upper Extremity Type of Tone Hypotonicity Severity of Tone Moderate M6 PT-IP Treatment Start: 02/04/21 13:12 Freq: NEEDED Status: Active Protocol: Document 02/04/21 10:04 AB (Rec: 02/04/21 13:23 [email or web address]) Physical Therapy Treatment Education Education Provided Safety M7 PT-IP Assessment and Plan Start: 02/04/21 13:12 Freq: NEEDED Status: Active Protocol: Document 02/04/21 10:04 (Rec: 02/04/21 13:23 [id number]) PT Summary Assessment and Plan Potential Rehabilitation Potential Fair Status of Condition at Evaluation Evolving Summary Impairments Pain,ROM,Strength,Balance, Coordination,Sensation,Tone, Cognition,Bed Mobility, Transfers,Gait,Activity Tolerance Assessment Summary pt requiring max A x 2 and max cues for transfers. unable to ambulate at this time and has decrease LUE/LE strength with decrease motor planning affecting mobility and safety. pt will require SNF vs acute rehab to improve strength/ balance and mobility independence. Goals Bed Mobility Goal Independent Transfer Goal Minimal Assistance,Front Wheeled Walker Gait Goal Minimal Assistance,Front Wheel Walker Gait Distance 50 Other Goals improve transfers mod I, ambulation mod I without AD 200 ft up/down 5 steps B rails mod I Frequency of Treatment Frequency Of Treatment Once a Day Treatment Plan Physical Therapy Treatment Plan Bed Mobility Training,Transfer Training,Gait Training, Therapeutic Exercise,Balance Retraining,Discharge Planning, Hot or Cold Pack,Neuromuscular Re-ed,Coordination Retraining Precautions Other Precautions falls Recommendations To Nursing Amount of Assist Needed 2 Person Assist Discharge Recommendations PT Discharge Recommendations SNF vs Acute Rehab Transportation Needs at Discharge Wheelchair/Cabulance
[2021-02-04] MEDS: ENOXAPARIN 40 MG/0.4 ML SYRINGE SUBCUT (10:17)
[2021-02-04] MEDS: VERAPAMIL SR 120 MG TABLET PO (10:19)
--- NOTE | 2021-02-04 11:57 | CM.DANOTE ---
DCP: Case received, EMR reviewed and checked on patient. She was up sleeping in her chair, and P.T. had already seen her. According to nurses, patient tearful and anxious, and over stimulated by people going into her room. Did write the name of this merchandise planner on her board in her room. Completed DCP assessment based upon information currently available. Patient is a 30 year old female who admitted yesterday evening to the care of the hospitalist team. PCP: Unknown at this time. Payer: confirmed: [email or web address]. Patient came to the hospital via ambulance secondary to having headaches, and concern that she had a stroke. Patient negative for CVA, as evidenced on tests, but she is to be having an MRI with contrast today. Patient is noted to have have hemiplagic migraine. She is also positive for substance abuse, including amphetamine, methamphetamine, and Fentanly. She is , and also having a spontaneous (miscarrying). Attempted to meet with patient, but she had been tearful and anxious, possible withdrawal, and tearful. She was up in her chair sleeping, and P.T. had worked with her. She resides in [place], and notes indicate that she lives with friends, and that her mother is her surrogate decision maker. P: DCP to continue to follow. Can attempt to see patient again later today, and discuss any resources that she may need. It is unclear if she has a primary care provider as well. Lo Gonzalez RN/[employer] [place] Law Clerk Discharge Planning/Care Management Advanced directive, confirm from FAMILY Start: 02/03/21 23:18 Freq: Q24H Status: Active Protocol: Document 02/03/21 23:18 (Rec: 02/04/21 02:15 [id number]) Advance Directive, confirm on record Time 22:50 Person contacted not done, patient sleeping Copy received No CM Discharge Assessment Start: 02/04/21 11:55 Freq: Status: Active Protocol: Document 02/04/21 11:55 (Rec: 02/04/21 11:56 [id number]) Discharge Planning Assessment Assigned Metal Miner Lo Gonzalez RN/[employer] Law Clerk Advance Directives? No Advance Directives on File No History Provided By Patient,Medical Record Prior Living Arrangements House Household Members friend(s) Type of transporation used prior to Drives own vehicle admit Caregiver for Another No Barriers to Discharge Yes Comment Patient has history of drug abuse Discharge Plan Home Transportation Arrangement Friends Referrals Initiated None needed Additional Comment Have not yet been able to have a conversation with patient regarding resources. Whiteboard Updated in Patient Room with Yes name and ext. # of Metal Miner Review Status In Process Next Review Type Continued Stay Review
[2021-02-04] MEDS: TOPIRAMATE 25 MG TABLET PO (12:19)
--- NOTE | 2021-02-04 14:23 | PC.NURSE ---
Assumed care of pt at 0700. Pt resting in bed during hand-off report. Up with P.Jose Juan for portiaal, see P.Jose Juan heath for details. Pt tearful and reports feeling fearful of her condition. LUE and LLE with weakness, able to slight move LUE and LLE but cannot lift. Reports tingling to LLE and LUE but able to feel touch. At approx 1230 pt reports she wants to go home. This RN asked if she was intending to leave AMA and pt stated yes but has nobody to pick her up or a way to get home. Provider notified. Pt declined MRI and ordered Ativan. Provider notified.
--- NOTE | 2021-02-04 15:46 | DI.MRI.S_ITS ---
PROCEDURE: MR HEAD/BRAIN W CON INDICATIONS: Clinical concern for CVA TECHNIQUE: Noncontrast brain MRI images were performed on the prior day and not repeated. Following alteration hand images, and after the administration of contrast, axial and coronal VIBE with fat saturation through the brain. COMPARISON: [facility], MR, MR HEAD/BRAIN WO CON, 02/03/2021, 19:15. [facility], CT, CT ANGIO HEAD AND NECK, 02/03/2021, 16:01. [facility], CT, CT STROKE, 02/03/2021, 15:50. FINDINGS: These images are highly limited by motion artifact. To the limits of the study, no findings of abnormal enhancement or masses can be seen. No findings of midline shift can be seen. There is no hydrocephalus. IMPRESSION: Highly limited study, without findings of masses or abnormal enhancement. Dictated by: Devonte Wang M.D. on 02/04/2021 at 16:19 Approved by: Devonte Wang M.D. on 02/04/2021 at 16:22
[2021-02-04] MEDS: LORazepam 2 MG/ML INJ IV (16:12)
--- NOTE | 2021-02-04 17:23 | P.PN_ITS ---
Subjective Subjective Date Patient Seen: 02/04/21 Time Patient Seen: 17:23 Interval history: This is a 30-year-old female, admitted to the hospital with left-sided hemiplegia. Her weakness is improving and she is able to move her left arm somewhat more today. She continues to have a headache. Initial MRI imaging was negative for an acute infarct. She is pending a contrast MRI of her brain per Neurology recommendations. Patient became anxious, wanted to leave AMA and wanted to go home. She agreed to stay given her still persistent deficits and current inability to walk for further workup, hence MRI with contrast was delayed. Exam Vital Signs (past 8 hours): - 02/04/21 11:15 02/04/21 15:09 Temperature 98.4 F 98.2 F Pulse Rate 81 68 Respiratory Rate 16 18 Blood Pressure 127/89 113/71 Pulse Oximetry 97 98 Oxygen Delivery Method Room Air Oxygen Flow Rate 0 Narrative Exam Narrative: Gen: Alert, oriented, obese 30 y.o. female, midly distressed, tearful, scared. HEENT: normocephalic, atraumatic, conjunctiva clear, sclera non-icteric, oral mucosa pink and moist Neck: supple, full ROM, no JVD, trachea is midline Resp: Lungs CTA, non-labored breathing CV: RRR, no murmur or rubs Abd: soft, non-tender, normoactive BTs Skin: no lesions or rashes, dry and intact Neuro: Alert and oriented X 3 w/no focal deficits. LUE flaccid, LLE able to move laterally sitting in the chair. Reports deficits in sensation to light touch entire left side, including back. Some blurred vision. All improving to patient. Extremities: no edema or joint effusions. Psyche: depressed and anxious affect. Objective Labs Result Diagrams: 02/04/21 07:50 02/04/21 07:50 Labs: Laboratory Results - last 24 hr 02/03/21 02/03/21 02/03/21 16:05 16:05 16:08 WBC RBC Hgb Hct MCV MCH MCHC RDW Plt Count Neut % (Auto) Lymph % (Auto) [place] % (Auto) Eos % (Auto) Baso % (Auto) Neut # (Auto) Lymph # (Auto) [place] # (Auto) Eos # (Auto) Baso # (Auto) Sodium Potassium Chloride Carbon Dioxide BUN Creatinine Estimated GFR BUN/Creatinine Ratio Glucose Calcium Total Bilirubin Conjugated Bilirubin Unconjugated Bilirubin AST ALT Alkaline Phosphatase Total Protein Albumin Globulin Albumin/Globulin Ratio Triglycerides Cholesterol LDL Cholesterol, Calc HDL Cholesterol TSH 1.25 HCG, Quant 43.1 Urine Color Urine Appearance Urine pH Ur Specific [place] Urine Protein Urine Glucose (UA) Urine Ketones Urine Occult Blood Urine Nitrate Urine Bilirubin Urine Urobilinogen Ur Leukocyte Esterase Urine RBC Urine WBC Ur Squamous Epith Cells Urine Bacteria Ur Culture Indicated? U Opiates 300ng/mL cut Ur Oxycodone Screen Urine Methadone Screen Ur Barbiturates Screen U Tricyclic Antidepress Ur Phencyclidine Scrn Ur Amphetamines Screen U Methamphetamines Scrn Ur MDMA Scrn (Ecstasy) U Benzodiazepines Scrn Urine Cocaine Screen U Marijuana (THC) Screen SARS-CoV-2 (PCR) Negative 02/04/21 02/04/21 02/04/21 04:34 04:34 07:50 WBC 6.9 RBC 4.24 Hgb 11.5 L Hct 34.7 L MCV 81.8 MCH 27.2 MCHC 33.2 RDW 14.5 Plt Count 271 Neut % (Auto) 49.3 L Lymph % (Auto) 33.0 [place] % (Auto) 9.9 Eos % (Auto) 6.4 H Baso % (Auto) 1.4 Neut # (Auto) 3400 Lymph # (Auto) 2300 [place] # (Auto) 700 Eos # (Auto) 400 Baso # (Auto) 100 Sodium Potassium Chloride Carbon Dioxide BUN Creatinine Estimated GFR BUN/Creatinine Ratio Glucose Calcium Total Bilirubin Conjugated Bilirubin Unconjugated Bilirubin AST ALT Alkaline Phosphatase Total Protein Albumin Globulin Albumin/Globulin Ratio Triglycerides Cholesterol LDL Cholesterol, Calc HDL Cholesterol TSH HCG, Quant Urine Color Yellow Urine Appearance Clear Urine pH 6.5 Ur Specific [place] 1.010 Urine Protein 1+ H Urine Glucose (UA) Negative Urine Ketones Negative Urine Occult Blood 3+ H Urine Nitrate Negative Urine Bilirubin Negative Urine Urobilinogen 0.2 Ur Leukocyte Esterase Negative Urine RBC 0-1/hpf Urine WBC 1-5/hpf Ur Squamous Epith Cells 1-5 /hpf Urine Bacteria Few (2-10) H Ur Culture Indicated? Cult not indicated U Opiates 300ng/mL cut Positive H Ur Oxycodone Screen Negative Urine Methadone Screen Negative Ur Barbiturates Screen Negative U Tricyclic Antidepress Positive H Ur Phencyclidine Scrn Negative Ur Amphetamines Screen Positive H U Methamphetamines Scrn Positive H Ur MDMA Scrn (Ecstasy) Positive H U Benzodiazepines Scrn Negative Urine Cocaine Screen Negative U Marijuana (THC) Screen Positive H SARS-CoV-2 (PCR) 02/04/21 07:50 WBC RBC Hgb Hct MCV MCH MCHC RDW Plt Count Neut % (Auto) Lymph % (Auto) [place] % (Auto) Eos % (Auto) Baso % (Auto) Neut # (Auto) Lymph # (Auto) [place] # (Auto) Eos # (Auto) Baso # (Auto) Sodium 137 Potassium 3.8 Chloride 107 Carbon Dioxide 26 BUN 14 Creatinine 0.61 Estimated GFR > 60.0 BUN/Creatinine Ratio 23.0 H Glucose 90 Calcium 8.7 Total Bilirubin 0.5 Conjugated Bilirubin 0.0 Unconjugated Bilirubin 0.4 AST 18 ALT 12 Alkaline Phosphatase 46 Total Protein 6.0 L Albumin 3.2 L Globulin 2.8 Albumin/Globulin Ratio 1.1 Triglycerides 147 Cholesterol 153 LDL Cholesterol, Calc 94 HDL Cholesterol 30 L TSH HCG, Quant Urine Color Urine Appearance Urine pH Ur Specific [place] Urine Protein Urine Glucose (UA) Urine Ketones Urine Occult Blood Urine Nitrate Urine Bilirubin Urine Urobilinogen Ur Leukocyte Esterase Urine RBC Urine WBC Ur Squamous Epith Cells Urine Bacteria Ur Culture Indicated? U Opiates 300ng/mL cut Ur Oxycodone Screen Urine Methadone Screen Ur Barbiturates Screen U Tricyclic Antidepress Ur Phencyclidine Scrn Ur Amphetamines Screen U Methamphetamines Scrn Ur MDMA Scrn (Ecstasy) U Benzodiazepines Scrn Urine Cocaine Screen U Marijuana (THC) Screen SARS-CoV-2 (PCR) [facility] Medical History Bartholin's gland abscess Methamphetamine abuse Miscarriage Opioid abuse Vaginal bleeding Surgical History History of lithotripsy Status post breast reduction Social History household members: friend(s) Smoking Status: Current every day smoker Assessment & Plan Assessment & Plan narrative: Minna Arguello is placed into observation to assist her with clearing symptoms for a suspected hemiplegic migraine. 1. Suspected hemiplegic migraine vs CVA * CT scan of the brain was negative, MRI without contrast negative for acute stroke * awaiting MRI with contrast now * NIH scales q shift, no significant improvement. * Ibuprofen/tylenol for pain * UTD recommendation for use of daily or twice daily verapramil 120 extended release initially once daily and can titrate up to 120 mg bid. added topamax today. If no further improvement telestroke recommended neurology consultation. * She will need to followup with outpatient neurology * continue PT/OT 2. Methamphetamine and fentanyl abuse * UDS is positive for many substances * consult * Last use stated to be 02/03. VTE Prophylaxis: Wells risk score 1.5 Enoxaparin 40 mg subQ once daily Dispo: unknown at this time, pending further evaluation and workup. Code status: full code as discussed with the patient who identifies her mother as her surrogate and POA. Time Spent With Patient Critical Care time: I spent a total of [] minutes of critical care time on this patient's care today; this time is exclusive of procedural time. Scores NIHSS Level of Conciousness: Alert, keenly responsive Ask month/age: Answers both questions correctly. Open/close eyes, close hand: Performs both tasks correctly Best gaze horizontal: Normal Visual [place]: No visual loss Facial palsy: Normal symetrical movement Left arm drift: No movement Right arm drift: No drift for full 10 sec Left leg drift: No effort against gravity Right leg drift: No drift for full 5 sec Limb ataxia: Absent Sensory on face/arms/legs: Mild to moderate sensory loss, can tell touch Best language: No aphasia, normal Dysarthria: Normal Extinction or inattention: No abnormality Total NIH Stroke scale score: 8 Quality VTE Deep Vein Thrombosis/Pulmonary Embolism Present on Admission: No
[2021-02-05 00:04] VITALS: O2SAT 99
--- NOTE | 2021-02-05 02:24 | PC.NURSE ---
pt states that she wanted to leave and called her friend for a ride. pt was educated on risks and benefits and pt insisted on leaving, nurse notified provider, pt signed for refusal of consent to treatment -AMA form, nurse removed IV, pt tolerated well, pt ambulated out of hospital with her friend.
== END 2021-02-05 02:15 | disposition home or self-care (01) ==
LOC: ED 22:04 → AC 22:20
PROVIDERS: Emergency Medicine; Admitting Provider Nurse Practitioner Family; Emergency Provider Emergency Medicine; Referring Provider Emergency Medicine; Visit Provider Nurse Practitioner Family
DX: R29.818 Other symptoms and signs involving the nervous system (principal); R51.9 Headache, unspecified; R11.2 Nausea with vomiting, unspecified; R53.1 Weakness; F17.210 Nicotine dependence, cigarettes, uncomplicated; F15.129 Other stimulant abuse with intoxication, unspecified; R29.709 NIHSS score 9; Z53.29 Procedure and treatment not carried out because of patient's decision for other reasons; Z33.1 Pregnant state, incidental; Z20.822 Contact with and (suspected) exposure to COVID-19
CPT/HCPCS: 36415; 70450; 70496; 70498; 70551; 70552; 80048; 80053; 80061; 80076; 80305; 80320; 80329; 81001; 82550; 82962; 83605; 83690; 83735; 84443; 84484; 84702; 84703; 85025; 85610; 85730; 87635; 93005; 93010; 96361; 96372; 96374; 96375; 96376; 97162; 99285; C9803; G0378; A9579; G0480; J1170; J1200; J1650; J1885; J2060; J2765; Q9967